=== PATIENT | female | born 1950 | race Caucasian/White ===

== ENCOUNTER → 2020-03-12 08:58 | Outpatient (BNVA) | payer MEDICARE, MEDICAID, SELFPAY | PROVIDERS: PCP Family Medicine; Referring Provider Family Medicine; Visit Provider Nurse Practitioner Family | DX: G47.61 Periodic limb movement disorder (principal); Z88.0 Allergy status to penicillin | CPT/HCPCS: 99212 ==

== ENCOUNTER 2020-03-15 22:47 | Inpatient (IN) | payer MEDICARE, OTHER, SELFPAY ==
[2020-03-15 23:05] VITALS: BP 118/50; BP 118/64; PULSE 67; PULSE 73; RESP 18; TEMP 36.7; O2SAT 100; BMI 21.0
[2020-03-15] MEDS: 0.9 % Sodium Chloride 1,000 ML 999 ML IVCONT (23:25)
[2020-03-15 23:37] LABS: MANUAL DIFF FLAG NO
[2020-03-15 23:38] LABS: Basophils Percent Auto 0.2 % (0-2); Hematocrit 31.7 % (37-47); Hemoglobin 10.7 g/dl (12.0-16.0); Imm Gran Abs Auto 0.05 X10*3/uL (0.00-0.03); Imm Gran Pct Auto 0.6 % (0.0-0.4); Lymphocytes Percent Auto 11.6 % (20-40); Mean Corpuscular HGB Conc 33.8 g/dl (31.0-35.0); Mean Corpuscular Hemoglobin 31.8 pg (27.0-33.0); Mean Corpuscular Volume 94.1 fL (80-98); Mean Platelet Volume 9.2 fL (9.4-12.3); Monocytes Absolute Auto 0.5 X10*3/uL (0.1-1.2); Monocytes Percent Auto 5.3 % (2-11); Neutrophils Absolute Auto 7.2 X10*3/uL (2.0-8.3); Neutrophils Percent Auto 82.3 % (45-73); Platelet Count 308 X10*3/uL (160-400); Red Blood Count 3.37 X10*6/uL (4.20-5.50); Red Cell Distribution Width 13.6 % (11.0-16.0); White Blood Count 8.7 X10*3/uL (4.8-10.8)
--- NOTE | 2020-03-15 23:40 | PC.NURSE ---
PT COMING IN FROM EMS FOR COMPLAINTS OF LOWER ABDOMINAL PAIN AND NAUSEA WITH VOMITTING. PT ARRIVES WITH LINE ESTABLISHED FLUIDS RUNNING WITH IV ZOFRAN. PT LABS SENT AT THIS TIME,. PT VOMITTED FOOD SUSBTANCE WHEN IN THIS RNS CARE. PT VITALS WNL.
[2020-03-16] VITALS (7 sets, daily range): BP systolic 102–139; BP diastolic 49–64; PULSE 70–86; RESP 17–20; TEMP 36.3–37.2; O2SAT 94–100
[2020-03-16 00:04] LABS: Alanine Aminotransferase 17 U/L (0-31); Albumin Level 3.9 g/dL (3.5-5.0); Alkaline Phosphatase 97 U/L (39-117); Anion Gap 15 (12-20); Aspartate Amino Transferase 19 U/L (5-31); Bilirubin Total 0.7 mg/dL (0.0-1.0); Blood Urea Nitrogen 14 mg/dL (9-16); Calcium 8.1 mg/dL (8.4-10.2); Carbon Dioxide 24 mmol/L (22-29); Chloride 104 mmol/L (96-108); Creatinine Clr Calc Pharmacy 48.6; Estimated Glomerular Filt Rate > 60; Glucose Random 118 mg/dL (60-115); Lipase 11 U/L (8-78); Potassium 3.9 mmol/l (3.3-5.1); Sodium 139 mmol/L (135-145); Total Protein 6.5 g/dL (6.5-8.0)
--- NOTE | 2020-03-16 00:49 | CT_ITS ---
EXAMINATION: CT ABDOMEN AND PELVIS WITH CONTRAST CLINICAL INFORMATION: Abdominal pain. COMPARISON: 07/04/2019. TECHNIQUE: Contiguous axial thin section helical images of the abdomen and pelvis were performed following the administration of 85 mL of intravenous Omnipaque 350. The data set was reformatted in the coronal and sagittal planes and reviewed on an independent workstation. DLP: 378 mGy-cm. FINDINGS: The visualized lung bases are clear. The visualized portions of the heart are unremarkable.) . The liver is of normal size and attenuation without focal lesions nor intrahepatic biliary ductal dilation. A normal gallbladder is identified. There is no wall thickening or discernible pericholecystic fluid. The spleen, pancreas, adrenal glands are unremarkable. Both kidneys are of normal size and attenuation without hydronephrosis or nephrolithiasis. Following the administration of IV contrast, prompt symmetric nephrograms are displayed. There is no abdominal free fluid. There is neither mesenteric nor retroperitoneal lymphadenopathy. Evaluation of the sigmoid colon is limited as it is underdistended. There is the appearance of equivocal wall thickening with a few scattered diverticula. There is mild adjacent fat stranding. Otherwise, unremarkable unopacified loops of small and large bowel are identified. There is no pelvic free fluid. The urinary bladder is unremarkable. There is neither pelvic nor inguinal lymphadenopathy. Bone windows: Neither sclerotic nor lytic bone lesions are identified. CT/CT abdomen pelvis w con IMPRESSION: Mild fat stranding noted about decompressed loops of sigmoid colon with a few scattered diverticula. The appearance is suggestive of mild manifestations of colitis. Automated exposure control (Care Dose) Adjustment of the mA and/or kv according to patient size (this includes techniques or standardized protocols for targeted exams where dose is matched to indication / reason for exam; i.e. extremities or head).
--- NOTE | 2020-03-16 00:54 | ED.ABDPAIN ---
HPI - Abdominal Pain General Chief Complaint: Abdominal Pain Stated Complaint: weakness vomiting Time Seen by Provider: 03/16/20 00:08 History of Present Illness HPI narrative: Patient is a 69-year-old female presents today with having abdominal pain positive nausea, vomiting. Vomiting consisted mostly of food. Positive diarrhea. Patient claimed was black. Related Data Home Medications Medication Instructions Recorded Confirmed atorvastatin 40 mg tablet 40 mg PO BEDTIME 03/12/20 03/12/20 calcium carbonate 400 mg chewable 400 mg PO DAILY 03/12/20 03/16/20 tablet escitalopram oxalate 20 mg tablet 20 mg PO DAILY 03/12/20 03/12/20 hydrochlorothiazide 12.5 mg capsule 12.5 mg PO QAM 03/12/20 03/12/20 levothyroxine 75 mcg tablet 75 mcg PO DAILY 03/12/20 03/12/20 melatonin 3 mg capsule 3 mg PO BEDTIME PRN 03/12/20 03/16/20 metoclopramide HCl 5 mg tablet 5 mg PO .1-2 x's per day prn tab 03/12/20 03/16/20 oxybutynin chloride 10 mg 10 mg PO DAILY 03/12/20 03/16/20 tablet,extended release 24 hr pantoprazole 40 mg tablet,delayed 40 mg PO BID tab 03/12/20 03/12/20 release polyethylene glycol 3350 17 17 g PO DAILY 03/12/20 03/12/20 gram/dose oral powder bupropion HCl 150 mg PO BID 03/16/20 03/16/20 pantoprazole 40 mg PO DAILY 03/16/20 03/16/20 Allergies Allergy/AdvReac Type Severity Reaction Status Date / Time penicillin V Allergy Severe SWELLING,RA Verified 03/15/20 23:04 Penicillins [PENICILLINS] Allergy Severe SWELLING,RA Verified 03/15/20 23:04 Physical Exam Vital Signs: Vital Signs: Last Vital Signs Temp 97.3 F 03/16/20 01:20 Pulse 82 03/16/20 01:20 Resp 18 03/16/20 01:20 BP 139/64 03/16/20 01:20 Pulse Ox 100 03/16/20 01:20 Body Mass Index 21.0 MDM - Abdominal Pain MDM Narrative Medical decision making narrative: Patient has nausea, vomiting. Patient's hemoglobin is baseline. Rectal exam showed just mucus. It was heme-negative. Patient's heart rate is normal white count is normal. Does not meet SIRS criteria. No evidence for sepsis. Patient's signs and symptoms suggestive of colitis. CT scan of the abdomen consistent with colitis. No obstruction no abscess no perforation. IV fluid and Zofran was given. Patient unable to tolerate p.o. still. Patient to be admitted for further evaluation. Currently in stable condition. Lab Data Result diagrams: 03/15/20 23:29 03/15/20 23:29 Labs: Lab Results 03/15/20 03/15/20 03/15/20 Range/Units 23:29 23:29 23:29 WBC 8.7 (4.8-10.8) X10*3/uL RBC 3.37 L (4.20-5.50) X10*6/uL Hgb 10.7 L (12.0-16.0) g/dl Hct 31.7 L (37-47) % MCV 94.1 (80-98) fL MCH 31.8 (27.0-33.0) pg MCHC 33.8 (31.0-35.0) g/dl RDW 13.6 (11.0-16.0) % Plt Count 308 (160-400) X10*3/uL MPV 9.2 L (9.4-12.3) fL Immature Gran % (Auto) 0.6 H (0.0-0.4) % Neut % (Auto) 82.3 H (45-73) % Lymph % (Auto) 11.6 L (20-40) % [place] % (Auto) 5.3 (2-11) % Eos % (Auto) 0.0 (0-4) % Baso % (Auto) 0.2 (0-2) % Lymph # (Auto) 1.0 L (1.2-4.9) X10*3/uL [place] # (Auto) 0.5 (0.1-1.2) X10*3/uL Eos # (Auto) 0.0 (0.0-0.4) X10*3/uL Baso # (Auto) 0.0 (0.0-0.2) X10*3/uL Abs Immat Gran (auto) 0.05 H (0.00-0.03) X10*3/uL Absolute Neuts (auto) 7.2 (2.0-8.3) X10*3/uL Absolute Nucleated RBC 0.000 (0.0-0.012) X10*3/uL Nucleated RBC % (auto) 0.0 (0.0-0.2) /100WBC Hold Blue Top SEE NOTE Sodium 139 (135-145) mmol/L Potassium 3.9 (3.3-5.1) mmol/l Chloride 104 (96-108) mmol/L Carbon Dioxide 24 (22-29) mmol/L Anion Gap 15 (12-20) BUN 14 (9-16) mg/dL Creatinine 0.89 (0.5-1.4) mg/dL Estim Creat Clear Calc 48.6 Estimated GFR > 60 Random Glucose 118 H (60-115) mg/dL Calcium 8.1 L (8.4-10.2) mg/dL Total Bilirubin 0.7 (0.0-1.0) mg/dL AST 19 (5-31) U/L ALT 17 (0-31) U/L Alkaline Phosphatase 97 (39-117) U/L Total Protein 6.5 (6.5-8.0) g/dL Albumin 3.9 (3.5-5.0) g/dL Lipase 11 (8-78) U/L Stool Occult Blood (NEG) 03/16/20 Range/Units 01:50 WBC (4.8-10.8) X10*3/uL RBC (4.20-5.50) X10*6/uL Hgb (12.0-16.0) g/dl Hct (37-47) % MCV (80-98) fL MCH (27.0-33.0) pg MCHC (31.0-35.0) g/dl RDW (11.0-16.0) % Plt Count (160-400) X10*3/uL MPV (9.4-12.3) fL Immature Gran % (Auto) (0.0-0.4) % Neut % (Auto) (45-73) % Lymph % (Auto) (20-40) % [place] % (Auto) (2-11) % Eos % (Auto) (0-4) % Baso % (Auto) (0-2) % Lymph # (Auto) (1.2-4.9) X10*3/uL [place] # (Auto) (0.1-1.2) X10*3/uL Eos # (Auto) (0.0-0.4) X10*3/uL Baso # (Auto) (0.0-0.2) X10*3/uL Abs Immat Gran (auto) (0.00-0.03) X10*3/uL Absolute Neuts (auto) (2.0-8.3) X10*3/uL Absolute Nucleated RBC (0.0-0.012) X10*3/uL Nucleated RBC % (auto) (0.0-0.2) /100WBC Hold Blue Top Sodium (135-145) mmol/L Potassium (3.3-5.1) mmol/l Chloride (96-108) mmol/L Carbon Dioxide (22-29) mmol/L Anion Gap (12-20) BUN (9-16) mg/dL Creatinine (0.5-1.4) mg/dL Estim Creat Clear Calc Estimated GFR Random Glucose (60-115) mg/dL Calcium (8.4-10.2) mg/dL Total Bilirubin (0.0-1.0) mg/dL AST (5-31) U/L ALT (0-31) U/L Alkaline Phosphatase (39-117) U/L Total Protein (6.5-8.0) g/dL Albumin (3.5-5.0) g/dL Lipase (8-78) U/L Stool Occult Blood NEG (NEG) Discharge Plan Discharge Clinical Impression: Colitis Prescriptions: No Action bupropion HCl 150 mg tablet sustained-release 12 hr 150 mg PO BID RF: 0 pantoprazole 40 mg tablet,delayed release (DR/EC) 40 mg PO DAILY RF: 0 pantoprazole 40 mg tablet,delayed release (DR/EC) 40 mg PO BID RF: 0 escitalopram oxalate 20 mg tablet 20 mg PO DAILY RF: 0 atorvastatin 40 mg tablet 40 mg PO BEDTIME RF: 0 melatonin 3 mg capsule 3 mg PO BEDTIME PRN (Reason: Sleep) RF: 0 levothyroxine 75 mcg tablet 75 mcg PO DAILY RF: 0 hydrochlorothiazide 12.5 mg capsule 12.5 mg PO QAM RF: 0 calcium carbonate 400 mg tablet,chewable 400 mg PO DAILY RF: 0 oxybutynin chloride 10 mg tablet extended release 24hr 10 mg PO DAILY RF: 0 polyethylene glycol 3350 [Miralax] 17 gram/dose powder 17 g PO DAILY RF: 0 metoclopramide HCl [Reglan] 5 mg tablet 5 mg PO .1-2 x's per day prn RF: 0 PMFSH Past Medical History Medical History (Updated 03/16/20 @ 02:31 by Latosha Jeffrey MD) Anxiety Depression Social History Social History Advance Directives: No Advance Directives Information Provided: No
[2020-03-16] MEDS: iohexoL 350 MG/ML 100 ML INFUS..BTL 85 ML IV (01:11)
--- NOTE | 2020-03-16 02:00 | PC.NURSE ---
po challenge in progress. patient does not want to eat
[2020-03-16 02:05] LABS: OBS Int Ctl Valid YES; OBS1 NEG (NEG)
[2020-03-16] MEDS: 0.9 % Sodium Chloride 1,000 ML 999 ML IVCONT (03:35)
--- NOTE | 2020-03-16 03:37 | PC.NURSE ---
pt ambulated to bathroom with 1 assist, very weak and dizzy. still unable to tolerate po. additional liter hung
[2020-03-16 04:02] LABS: SARS COV2 PCR INHOUSE NEGATIVE (Negative)
--- NOTE | 2020-03-16 06:55 | PC.NURSE ---
received report from wilian Valentino pt is currently asleep, respirations even and unlabored. pt awaiting admission to the hospital
--- NOTE | 2020-03-16 08:35 | PC.NURSE ---
pt assisted to the bthroom, required a wheelchair due to feeling week, still having some nausea and lower abd pain 11/16 at this time, vs stable
--- NOTE | 2020-03-16 10:18 | PC.NURSE ---
REPORT GIVEN TO CAROLANN LORD ON MED/SURG
[2020-03-16] MEDS: Dextrose 5 % and 0.9 % NaCl 1,000 ML 75 ML IVCONT (11:18)
[2020-03-16] MEDS: ondansetron HCL 4 MG/2 ML VIAL IVPUSH ×2 (11:18→21:50)
[2020-03-16] MEDS: Enoxaparin Sodium 40 MG/0.4 ML SYRINGE SUBCUT (13:23)
--- NOTE | 2020-03-16 13:58 | PM.IMHP ---
History of Present Illness Date of Service: 03/16/20 Chief Complaint: Nausea, abdominal pain A 69 years old female with PMH of HTN, hypothyroidism, depression who presented to the hospital complaining of abdominal pain and nausea for the last 3 days. The patient reports feeling well during the week but started to feel abdominal pain around the umbilicus on which got worse on Wednesday with associated mild chills but no fever. She noted over the last 3 days that she is more nauseated and had vomited on couple of episodes. She was not able to tolerate a lot of diet. She denies any chest pain, shortness of breath, cough, urinary symptoms. A CT scan of the abdomen was consistent with diverticulitis Admit for further evaluation treatment. Review of Systems Review of Systems: No fever, chills or weakness No chest pain, palpitation No shortness of breath or coughing Of reported abdominal pain, episodes of nausea or vomiting No urinary symptoms No any rash or wounds PMFSH Medical History Anxiety Depression Restless leg syndrome Social History Household Members: Significant Other Housing: Apartment Do you presently have visiting nurse or other home services: No Alcohol intake: never Smoking Status: Former smoker Tobacco Type: Cigarette Smoked in Last 30 Days: No Smoking Quit Date: 40 years ago Patient Interested in Nicotine Replacement: No Patient Given Instructions on How to Stop Smoking: No Second Hand Smoke Exposure: No Use of substances other than those prescribed or required for medical reasons: No Any prior treatment program specific to substance use: No Have you been hit, kicked, punched, or otherwise hurt by someone within the past year? If so, by whom?: No Do you feel safe in your current relationship?: No Is there a partner from a previous relationship who is making you feel unsafe now?: No Are you made to feel afraid or neglected: No Advance Directives: No Advance Directives Information Provided: No Advance Directives on File: No Do you have thoughts of harming others: None Do you have a plan to hurt others: No Plan Recently lost weight without trying: No Meds Allergies Allergy/AdvReac Type Severity Reaction Status Date / Time penicillin V Allergy Severe SWELLING,RA Verified 03/15/20 23:04 Penicillins [PENICILLINS] Allergy Severe SWELLING,RA Verified 03/15/20 23:04 Home Medications Medication Instructions Recorded Confirmed Type atorvastatin 40 mg tablet 40 mg PO BEDTIME 03/12/20 03/16/20 History calcium carbonate 400 mg chewable 400 mg PO DAILY 03/12/20 03/16/20 History tablet escitalopram oxalate 20 mg tablet 20 mg PO DAILY 03/12/20 03/16/20 History hydrochlorothiazide 12.5 mg capsule 12.5 mg PO QAM 03/12/20 03/16/20 History levothyroxine 75 mcg tablet 75 mcg PO DAILY 03/12/20 03/16/20 History melatonin 3 mg capsule 3 mg PO BEDTIME PRN 03/12/20 03/16/20 History metoclopramide HCl 5 mg tablet 5 mg PO .1-2 x's per day prn tab 03/12/20 03/16/20 History oxybutynin chloride 10 mg 10 mg PO DAILY 03/12/20 03/16/20 History tablet,extended release 24 hr bupropion HCl 150 mg PO DAILY 03/16/20 03/16/20 History pantoprazole 40 mg PO DAILY 03/16/20 03/16/20 History Physical Exam Vital Signs and Narrative: Vital Signs: Last Vital Signs Temp 98.9 F 03/16/20 10:31 Pulse 71 03/16/20 10:31 Resp 18 03/16/20 10:31 BP 122/49 L 03/16/20 10:31 Pulse Ox 100 03/16/20 10:31 Body Mass Index 21.0 Constitutional : Alert, oriented, not in distress Neck : Normal inspection, Supple Cardiovascular : RRR, S1 S2, no lower extremity edema Respiratory : Good bilateral air entry, no crackles, wheezes or rhonchi Gastrointestinal: soft, lax, Normal bowel sounds, mild tenderness over the lower part of the stoma, no surgical signs, no rebound. Skin : Warm/Dry, No rash Neurological : Alert & oriented x3, No focal deficit Results Labs CBC and Chem 7: 03/15/20 23:29 03/15/20 23:29 Labs: Laboratory Results - last 24 hr 03/15/20 03/15/20 03/15/20 23:29 23:29 23:29 MCV 94.1 MCH 31.8 MCHC 33.8 RDW 13.6 Plt Count 308 MPV 9.2 L Immature Gran % (Auto) 0.6 H Neut % (Auto) 82.3 H Lymph % (Auto) 11.6 L [place] % (Auto) 5.3 Eos % (Auto) 0.0 Baso % (Auto) 0.2 Lymph # (Auto) 1.0 L [place] # (Auto) 0.5 Eos # (Auto) 0.0 Baso # (Auto) 0.0 Abs Immat Gran (auto) 0.05 H Absolute Neuts (auto) 7.2 Absolute Nucleated RBC 0.000 Nucleated RBC % (auto) 0.0 Hold Blue Top SEE NOTE Anion Gap 15 Estim Creat Clear Calc 48.6 Estimated GFR > 60 Random Glucose 118 H Calcium 8.1 L Total Bilirubin 0.7 AST 19 ALT 17 Alkaline Phosphatase 97 Total Protein 6.5 Albumin 3.9 Lipase 11 Stool Occult Blood Coronavirus (PCR) 03/16/20 03/16/20 01:50 02:26 MCV MCH MCHC RDW Plt Count MPV Immature Gran % (Auto) Neut % (Auto) Lymph % (Auto) [place] % (Auto) Eos % (Auto) Baso % (Auto) Lymph # (Auto) [place] # (Auto) Eos # (Auto) Baso # (Auto) Abs Immat Gran (auto) Absolute Neuts (auto) Absolute Nucleated RBC Nucleated RBC % (auto) Hold Blue Top Anion Gap Estim Creat Clear Calc Estimated GFR Random Glucose Calcium Total Bilirubin AST ALT Alkaline Phosphatase Total Protein Albumin Lipase Stool Occult Blood NEG Coronavirus (PCR) NEGATIVE Imaging Radiologist's Impressions: Impressions Abdomen/Pelvis CT 03/16/20 00:49 IMPRESSION: Mild fat stranding noted about decompressed loops of sigmoid colon with a few scattered diverticula. The appearance is suggestive of mild manifestations of colitis. Automated exposure control (Care Dose) Adjustment of the mA and/or kv according to patient size (this includes techniques or standardized protocols for targeted exams where dose is matched to indication / reason for exam; i.e. extremities or head). Assessment and Plan (1) Colitis: Status: Acute (2) Fatigue: Status: Acute (3) Depression: Status: Acute (4) Hypothyroidism: Status: Acute (5) Intractable nausea and vomiting: Status: Acute A 69 years old female with PMH of HTN, hypothyroidism, depression who presented to the hospital complaining of abdominal pain and nausea for the last 3 days. Acute colitis Intractable nausea and vomiting Not septic CT scan showing colitis IV fluid started on Flagyl and ceftriaxone Advanced diet as tolerated Zofran for nausea GERD Continue omeprazole Hypothyroidism Continue levothyroxine Hypertension continue hydrochlorothiazide DVT PPX Lovenox
[2020-03-16] MEDS: metroNIDAZOLE/NS 500 MG/100 ML PIGGYBACK 100 MG IV (17:08)
[2020-03-16] MEDS: 0.9 % Sodium Chloride Flush 3 ML SYRINGE IVFLUSH (17:16)
[2020-03-16] MEDS: cefTRIAXone sodium 1 GM in 0.9 % Sodium Chloride 50 ML IV (18:34)
[2020-03-16] MEDS: Atorvastatin Calcium 40 MG TABLET PO (21:42)
[2020-03-17] MEDS: 0.9 % Sodium Chloride Flush 3 ML SYRINGE IVFLUSH ×2 (00:22→08:08)
[2020-03-17] MEDS: metroNIDAZOLE/NS 500 MG/100 ML PIGGYBACK 100 MG IV ×3 (01:20→18:38)
[2020-03-17] MEDS: Dextrose 5 % and 0.9 % NaCl 1,000 ML 75 ML IVCONT ×2 (01:27→13:11)
[2020-03-17] MEDS: Levothyroxine Sodium 75 MCG TABLET PO (05:45)
[2020-03-17] MEDS: Omeprazole 40 MG CAPSULE.DR PO (05:45)
[2020-03-17 07:38] LABS: MANUAL DIFF FLAG NO
[2020-03-17 07:49] LABS: Basophils Percent Auto 0.1 % (0-2); Eosinophils Percent Auto 0.1 % (0-4); Hematocrit 29.5 % (37-47); Hemoglobin 9.8 g/dl (12.0-16.0); Imm Gran Abs Auto 0.03 X10*3/uL (0.00-0.03); Imm Gran Pct Auto 0.4 % (0.0-0.4); Lymphocytes Absolute Auto 1.6 X10*3/uL (1.2-4.9); Lymphocytes Percent Auto 20.8 % (20-40); Mean Corpuscular HGB Conc 33.2 g/dl (31.0-35.0); Mean Corpuscular Hemoglobin 31.8 pg (27.0-33.0); Mean Corpuscular Volume 95.8 fL (80-98); Mean Platelet Volume 9.4 fL (9.4-12.3); Monocytes Absolute Auto 0.7 X10*3/uL (0.1-1.2); Monocytes Percent Auto 8.9 % (2-11); Neutrophils Absolute Auto 5.5 X10*3/uL (2.0-8.3); Neutrophils Percent Auto 69.7 % (45-73); Platelet Count 294 X10*3/uL (160-400); Red Blood Count 3.08 X10*6/uL (4.20-5.50); Red Cell Distribution Width 13.7 % (11.0-16.0); White Blood Count 7.9 X10*3/uL (4.8-10.8)
[2020-03-17 07:54] VITALS: BP 119/71; PULSE 60; RESP 18; TEMP 36.1; O2SAT 99
[2020-03-17] MEDS: hydroCHLOROthiazide 12.5 MG TABLET PO (08:06)
[2020-03-17] MEDS: Escitalopram Oxalate 20 MG TABLET PO (08:06)
[2020-03-17 08:24] LABS: Anion Gap 9 (12-20); Blood Urea Nitrogen 9 mg/dL (9-16); Carbon Dioxide 26 mmol/L (22-29); Chloride 108 mmol/L (96-108); Creatinine Clr Calc Pharmacy 52.1; Estimated Glomerular Filt Rate > 60; Glucose Random 107 mg/dL (60-115); Potassium 3.3 mmol/l (3.3-5.1); Sodium 140 mmol/L (135-145)
[2020-03-17] MEDS: ondansetron HCL 4 MG/2 ML VIAL IVPUSH ×2 (09:22→18:38)
[2020-03-17 11:10] VITALS: BP 138/56; PULSE 69; RESP 17; TEMP 36.8; O2SAT 99
--- NOTE | 2020-03-17 12:07 | HO.PM.IMPN ---
Subjective Subjective Date of Service: 03/17/20 Interval History: the patient was seen and evaluated this morning Laying in bed, feels comfortable Denies any fever, chills or shortness of breath Abdominal pain better controlled No reported other overnight events. Review of Systems Review of Systems: Yes all other systems are reviewed and are negative Physical Exam Vital Signs: Vital Signs: Last Vital Signs Temp 98.2 F 03/17/20 11:10 Pulse 69 03/17/20 11:10 Resp 17 03/17/20 11:10 BP 138/56 L 03/17/20 11:10 Pulse Ox 99 03/17/20 11:10 Body Mass Index 21.0 Constitutional : Alert, oriented, not in distress Neck : Normal inspection, Supple Cardiovascular : RRR, S1 S2, no lower extremity edema Respiratory : Good bilateral air entry, no crackles, wheezes or rhonchi Gastrointestinal: soft, lax, Normal bowel sounds, mild tenderness over the lower part of the abdomen, no surgical signs, no rebound. Skin : Warm/Dry, No rash Neurological : Alert & oriented x3, No focal deficit Objective Data Current Medications Generic Name Dose Route Start Last Admin Trade Name Freq PRN Reason Stop Dose Admin Acetaminophen 650 mg 03/16/20 10:39 Acetaminophen 325 Mg Tablet PO Q6H PRN Pain, Mild (Pain Scale 1-3) Al Hydroxide/Mg Hydroxide 30 ml 03/16/20 10:39 Magnesium Hydrox/Alum Hydrox 30 Ml Oral.Susp PO Q4H PRN Heartburn/Nausea Atorvastatin Calcium 40 mg 03/16/20 21:00 03/16/20 21:42 Atorvastatin Calcium 40 Mg Tablet PO 40 mg BEDTIME ERIK Administration Enoxaparin Sodium 40 mg 03/16/20 12:00 03/16/20 13:23 Enoxaparin Sodium 40 Mg/0.4 Ml Syringe SUBCUT 40 mg Q24H ERIK Administration Escitalopram Oxalate 20 mg 03/17/20 09:00 03/17/20 08:06 Escitalopram Oxalate 20 Mg Tablet PO 20 mg DAILY ERIK Administration Hydrochlorothiazide 12.5 mg 03/16/20 10:39 03/17/20 08:06 Hydrochlorothiazide 12.5 Mg Tablet PO 12.5 mg DAILY ERIK Administration Protocol Dextrose/Sodium Chloride 1,000 mls @ 75 mls/hr 03/16/20 10:39 03/17/20 01:27 D5ns IVCONT 75 mls/hr .[id number] ERIK Administration Ceftriaxone Sodium 1 gm/ 50 mls @ 100 mls/hr 03/17/20 18:00 Sodium Chloride IV Q24H ERIK Metronidazole 500 mg in 100 mls @ 100 mls/hr 03/17/20 01:00 03/17/20 09:23 Flagyl IV Infused Q8H ERIK Infusion Levothyroxine Sodium 75 mcg 03/16/20 10:39 03/17/20 05:45 Levothyroxine Sodium 75 Mcg Tablet PO 75 mcg DAILY@0630 ERIK Administration Metoclopramide HCl 5 mg 03/16/20 21:00 Metoclopramide Hcl 5 Mg Tablet PO BID PRN GI Upset Omeprazole 40 mg 03/17/20 06:30 03/17/20 05:45 Omeprazole 40 Mg Capsule.Dr PO 40 mg DAILY@0630 ERIK Administration Ondansetron HCl 4 mg 03/16/20 10:52 03/17/20 09:22 Ondansetron Hcl 4 Mg/2 Ml Vial IVPUSH 4 mg Q8H PRN Administration Nausea and Vomiting Oxybutynin Chloride 10 mg 03/16/20 10:39 03/17/20 08:06 Oxybutynin Chloride Er 5 Mg Tab.Er.24 PO 10 mg DAILY ERIK Administration Pharmacy Consult 1 each 03/16/20 06:56 Consult Rx Perform Med Rec MISCELLANE ONCE PRN Consult order Sodium Chloride 3 ml 03/16/20 16:00 03/17/20 08:08 0.9 % Sodium Chloride Flush 3 Ml Syringe IVFLUSH 3 ml QSHIFT ERIK Administration Labs CBC & Chem 7: 03/17/20 07:12 03/17/20 07:12 Assessment and Plan (1) Colitis: Status: Acute (2) Fatigue: Status: Acute (3) Depression: Status: Acute (4) Hypothyroidism: Status: Acute (5) Intractable nausea and vomiting: Status: Acute Assessment and Plan: A 69 years old female with PMH of HTN, hypothyroidism, depression who presented to the hospital complaining of abdominal pain and nausea for the last 3 days. Acute colitis Intractable nausea and vomiting Improving CT scan showing colitis Continue IV fluid Continue Flagyl and ceftriaxone Advanced diet as tolerated Zofran for nausea GERD Continue omeprazole Hypothyroidism Continue levothyroxine Hypertension continue hydrochlorothiazide DVT PPX Lovenox
[2020-03-17] MEDS: Enoxaparin Sodium 40 MG/0.4 ML SYRINGE SUBCUT (13:02)
--- NOTE | 2020-03-17 13:41 | MHC.CM.PN ---
Pt reports she lives with her s/o, Freddie Barron ([phone]) and is independent with care and mobility. Pt reports she does not use DME and has no home/community services. Pt is unsure if she has a HCP but did not want to complete one today. [facility] delivered current DC plan is home with no services pt will self arrange transport
[2020-03-17 15:21] VITALS: BP 141/61; PULSE 71; RESP 18; TEMP 36.6; O2SAT 98
[2020-03-17 19:01] VITALS: BP 140/66; PULSE 70; RESP 19; TEMP 36.4; O2SAT 98
[2020-03-17] MEDS: cefTRIAXone sodium 1 GM in 0.9 % Sodium Chloride 50 ML IV (19:50)
[2020-03-17] MEDS: Atorvastatin Calcium 40 MG TABLET PO (21:19)
[2020-03-18] MEDS: metroNIDAZOLE/NS 500 MG/100 ML PIGGYBACK 100 MG IV ×3 (01:24→16:50)
[2020-03-18] MEDS: ondansetron HCL 4 MG/2 ML VIAL IVPUSH (02:25)
[2020-03-18] MEDS: Dextrose 5 % and 0.9 % NaCl 1,000 ML 75 ML IVCONT (02:29)
[2020-03-18 04:17] VITALS: BP 107/56; PULSE 68; RESP 19; TEMP 36.5; O2SAT 96
[2020-03-18] MEDS: Omeprazole 40 MG CAPSULE.DR PO (06:21)
[2020-03-18] MEDS: Levothyroxine Sodium 75 MCG TABLET PO (06:22)
[2020-03-18 06:25] LABS: Hemoglobin 8.9 g/dl (12.0-16.0); Mean Corpuscular Hemoglobin 30.9 pg (27.0-33.0); Mean Corpuscular Volume 93.8 fL (80-98); Mean Platelet Volume 9.2 fL (9.4-12.3); Platelet Count 254 X10*3/uL (160-400); Red Blood Count 2.88 X10*6/uL (4.20-5.50); Red Cell Distribution Width 13.1 % (11.0-16.0); White Blood Count 7.5 X10*3/uL (4.8-10.8)
[2020-03-18 06:52] LABS: Anion Gap 7 (12-20); Blood Urea Nitrogen 5 mg/dL (9-16); Calcium 7.6 mg/dL (8.4-10.2); Carbon Dioxide 30 mmol/L (22-29); Chloride 105 mmol/L (96-108); Creatinine Clr Calc Pharmacy 53.4; Estimated Glomerular Filt Rate > 60; Glucose Random 102 mg/dL (60-115); Potassium 2.6 mmol/l (3.3-5.1); Sodium 139 mmol/L (135-145)
[2020-03-18] MEDS: Potassium Chloride ER 20 MEQ TAB.ER.PRT 40 MEQ PO (07:58)
[2020-03-18] MEDS: hydroCHLOROthiazide 12.5 MG TABLET PO (07:58)
[2020-03-18] MEDS: Escitalopram Oxalate 20 MG TABLET PO (07:59)
[2020-03-18 08:09] VITALS: BP 119/55; PULSE 60; RESP 18; TEMP 36.3; O2SAT 99
--- NOTE | 2020-03-18 11:11 | HO.PM.IMPN ---
Subjective Subjective Date of Service: 03/18/20 Interval History: the patient was seen and evaluated this morning Laying in bed, feels comfortable, reported nausea with mealss Denies any fever, chills or shortness of breath Abdominal pain better controlled No reported other overnight events. Physical Exam Vital Signs: Vital Signs: Last Vital Signs Temp 97.4 F 03/18/20 08:09 Pulse 60 03/18/20 08:09 Resp 18 03/18/20 08:09 BP 119/55 L 03/18/20 08:09 Pulse Ox 99 03/18/20 08:09 Body Mass Index 21.0 Constitutional : Alert, oriented, not in distress Neck : Normal inspection, Supple Cardiovascular : RRR, S1 S2, no lower extremity edema Respiratory : Good bilateral air entry, no crackles, wheezes or rhonchi Gastrointestinal: soft, lax, Normal bowel sounds, mild tenderness over the lower part of the abdomen, no surgical signs, no rebound. Skin : Warm/Dry, No rash Neurological : Alert & oriented x3, No focal deficit Objective Data Current Medications Generic Name Dose Route Start Last Admin Trade Name Radamesq PRN Reason Stop Dose Admin Acetaminophen 650 mg 03/16/20 10:39 Acetaminophen 325 Mg Tablet PO Q6H PRN Pain, Mild (Pain Scale 1-3) Al Hydroxide/Mg Hydroxide 30 ml 03/16/20 10:39 Magnesium Hydrox/Alum Hydrox 30 Ml Oral.Susp PO Q4H PRN Heartburn/Nausea Atorvastatin Calcium 40 mg 03/16/20 21:00 03/17/20 21:19 Atorvastatin Calcium 40 Mg Tablet PO 40 mg BEDTIME ERIK Administration Escitalopram Oxalate 20 mg 03/17/20 09:00 03/18/20 07:59 Escitalopram Oxalate 20 Mg Tablet PO 20 mg DAILY ERIK Administration Hydrochlorothiazide 12.5 mg 03/16/20 10:39 03/18/20 07:58 Hydrochlorothiazide 12.5 Mg Tablet PO 12.5 mg DAILY ERIK Administration Protocol Ceftriaxone Sodium 1 gm/ 50 mls @ 100 mls/hr 03/17/20 18:00 03/17/20 20:20 Sodium Chloride IV Infused Q24H ERIK Infusion Metronidazole 500 mg in 100 mls @ 100 mls/hr 03/17/20 01:00 03/18/20 10:18 Flagyl IV 100 mls/hr Q8H ERIK Administration Levothyroxine Sodium 75 mcg 03/16/20 10:39 03/18/20 06:22 Levothyroxine Sodium 75 Mcg Tablet PO 75 mcg DAILY@0630 [facility] Administration Metoclopramide HCl 5 mg 03/16/20 21:00 Metoclopramide Hcl 5 Mg Tablet PO BID PRN GI Upset Metoclopramide HCl 5 mg 03/18/20 11:30 Metoclopramide Hcl 5 Mg Tablet PO TIDAC [facility] Omeprazole 40 mg 03/17/20 06:30 03/18/20 06:21 Omeprazole 40 Mg Capsule. PO 40 mg DAILY@0630 [facility] Administration Ondansetron HCl 4 mg 03/16/20 10:52 03/18/20 02:25 Ondansetron Hcl 4 Mg/2 Ml Vial IVPUSH 4 mg Q8H PRN Administration Nausea and Vomiting Oxybutynin Chloride 10 mg 03/16/20 10:39 03/18/20 07:58 Oxybutynin Chloride Er 5 Mg Tab.Er.24 PO 10 mg DAILY [facility] Administration Pharmacy Consult 1 each 03/16/20 06:56 Consult Rx Perform Med Rec MISCELLANE ONCE PRN Consult order Sodium Chloride 3 ml 03/16/20 16:00 03/18/20 07:59 0.9 % Sodium Chloride Flush 3 Ml Syringe IVFLUSH Not Given QSHIFT [facility] Labs CBC & Chem 7: 03/18/20 05:58 03/18/20 05:58 Assessment and Plan (1) Colitis: Status: Acute (2) Fatigue: Status: Acute (3) Depression: Status: Acute (4) Hypothyroidism: Status: Acute (5) Intractable nausea and vomiting: Status: Acute Assessment and Plan: A 69 years old female with PMH of HTN, hypothyroidism, depression who presented to the hospital complaining of abdominal pain and nausea for the last 3 days. Acute colitis Intractable nausea and vomiting Improving CT scan showing colitis DC IV fluid To use Reglan with meals Continue Flagyl and ceftriaxone Advanced diet to full liquids Zofran for nausea PRN GERD Continue omeprazole Hypothyroidism Continue levothyroxine Hypertension continue hydrochlorothiazide DVT PPX Lovenox
[2020-03-18 11:37] VITALS: BP 124/57; PULSE 64; RESP 18; TEMP 36.4; O2SAT 99
--- NOTE | 2020-03-18 11:44 | MHC.CM.PN ---
nurse patient care manager note electronic medical record reviewed along with caSE DISCUSSED WITH STAFF NURSE , MET WITH PATIENT SHE REPORTED FEELING BETTER THAN THE WEEKEND , STILL SOME NAUSEA WITH MEALS PER CT OF ABDOMEN SHOWED COLITIS PLAN OF CARE PER DOCUMENTATION STOP IV FLUIDS, USE REGLAN WITH MEALS CONTINUE TWO IV ABX (FLAGYL CEFTRIAXONE) ADVANCE TO FULL LIQUIDS AND PRN ZOFRAN , DISCHARGE PLAN ANTICIPATE DISCHrged home qith no servcies family to transport at time of discharge
[2020-03-18] MEDS: Metoclopramide HCl 5 MG TABLET PO ×2 (11:56→16:50)
[2020-03-18 15:42] VITALS: BP 107/45; PULSE 66; RESP 16; TEMP 36.6; O2SAT 97
[2020-03-18] MEDS: 0.9 % Sodium Chloride Flush 3 ML SYRINGE IVFLUSH (16:52)
[2020-03-18] MEDS: cefTRIAXone sodium 1 GM in 0.9 % Sodium Chloride 50 ML IV (18:37)
[2020-03-18] MEDS: Atorvastatin Calcium 40 MG TABLET PO (22:37)
[2020-03-19] VITALS: BP 136/66; PULSE 68; RESP 20; TEMP 36.3; O2SAT 96
[2020-03-19] MEDS: 0.9 % Sodium Chloride Flush 3 ML SYRINGE IVFLUSH ×2 (01:01→07:26)
[2020-03-19] MEDS: metroNIDAZOLE/NS 500 MG/100 ML PIGGYBACK 100 MG IV ×2 (01:01→07:26)
[2020-03-19] MEDS: Levothyroxine Sodium 75 MCG TABLET PO (05:44)
[2020-03-19] MEDS: Omeprazole 40 MG CAPSULE.DR PO (05:44)
[2020-03-19 07:11] VITALS: BP 117/52; PULSE 62; RESP 18; TEMP 36.6; O2SAT 98
[2020-03-19 07:11] LABS: Hematocrit 27.7 % (37-47); Hemoglobin 9.2 g/dl (12.0-16.0); Mean Corpuscular HGB Conc 33.2 g/dl (31.0-35.0); Mean Corpuscular Hemoglobin 31.1 pg (27.0-33.0); Mean Corpuscular Volume 93.6 fL (80-98); Mean Platelet Volume 9.8 fL (9.4-12.3); Platelet Count 270 X10*3/uL (160-400); Red Blood Count 2.96 X10*6/uL (4.20-5.50); Red Cell Distribution Width 13.1 % (11.0-16.0); White Blood Count 7.6 X10*3/uL (4.8-10.8)
[2020-03-19] MEDS: hydroCHLOROthiazide 12.5 MG TABLET PO (07:26)
[2020-03-19] MEDS: Escitalopram Oxalate 20 MG TABLET PO (07:26)
[2020-03-19] MEDS: Metoclopramide HCl 5 MG TABLET PO ×2 (07:26→11:36)
[2020-03-19 07:36] LABS: Anion Gap 8 (12-20); Blood Urea Nitrogen 9 mg/dL (9-16); Calcium 7.8 mg/dL (8.4-10.2); Carbon Dioxide 28 mmol/L (22-29); Chloride 106 mmol/L (96-108); Creatinine Clr Calc Pharmacy 55.5; Estimated Glomerular Filt Rate > 60; Glucose Random 72 mg/dL (60-115); Potassium 3.3 mmol/l (3.3-5.1); Sodium 139 mmol/L (135-145)
[2020-03-19 08:00] VITALS: BP 117/52; PULSE 62; RESP 62; TEMP 36.6; O2SAT 98
[2020-03-19 08:56] VITALS: BP 117/52; PULSE 62; O2SAT 98
[2020-03-19 11:08] VITALS: BP 110/50; PULSE 76; RESP 17; TEMP 36.3; O2SAT 96
--- NOTE | 2020-03-19 12:24 | MHC.CM.PN ---
nurse healthcare administrative assistant note electronic medical record reviewed along with case discussed with staff nurse and n patient care rounds , patient will be discharge home today discharge plan home no srvices pcp patient to call for post discharge follwo up appointment transportation partner
--- NOTE | 2020-03-19 13:20 | PM.DS ---
DS: Providers Provider Date of admission: 03/16/20 09:49 Primary care physician: Randolph Thomas MD DS: Diagnosis Discharge Diagnosis (1) Colitis: Status: Acute (2) Fatigue: Status: Acute (3) Depression: Status: Acute (4) Hypothyroidism: Status: Acute (5) Intractable nausea and vomiting: Status: Acute DS: Summary Hospital Course Hospital Course: Admission note HPI A 69 years old female with PMH of HTN, hypothyroidism, depression who presented to the hospital complaining of abdominal pain and nausea for the last 3 days. The patient reports feeling well during the week but started to feel abdominal pain around the umbilicus on which got worse on Wednesday with associated mild chills but no fever. She noted over the last 3 days that she is more nauseated and had vomited on couple of episodes. She was not able to tolerate a lot of diet. She denies any chest pain, shortness of breath, cough, urinary symptoms. A CT scan of the abdomen was consistent with diverticulitis Admit for further evaluation treatment. Hospital course The patient was admitted for treatment acute colitis shown a CT scan of the abdomen and pelvis associated with intractable nausea and vomiting. She was started on IV fluid, antibiotics of Flagyl and ceftriaxone. Her blood cultures remain negative during the hospital stay. Reglan was used with the meals for nausea with good response. Her diet was advanced during the hospital stay. She was able to ambulate with the nurses. To be discharged home to continue Flagyl and Ceftin. Next [place] to follow-up with PCP as outpatient To advanced diet as tolerated Time Spent with Patient Time attestation: Total time spent providing and/or coordinating discharge services: Physical Exam Vital Signs: Vital Signs: Last Vital Signs Temp 97.3 F 03/19/20 11:08 Pulse 76 03/19/20 11:08 Resp 17 03/19/20 11:08 BP 110/50 L 03/19/20 11:08 Pulse Ox 96 03/19/20 11:08 Body Mass Index 21.0 Constitutional : Alert, oriented, not in distress Neck : Normal inspection, Supple Cardiovascular : RRR, S1 S2, no lower extremity edema Respiratory : Good bilateral air entry, no crackles, wheezes or rhonchi Gastrointestinal: soft, lax, Normal bowel sounds, no tenderness, no surgical signs, no rebound. Skin : Warm/Dry, No rash Neurological : Alert & oriented x3, No focal deficit DS: Data Data Completed and Pending Labs on day of discharge: 03/15/20 23:29 Complete Blood Count Auto Diff Stat Comprehensive Met. Panel Stat Hold Lt Blue - Possible Coag Stat Lipase Stat 03/15/20 23:30 0.9 % Sodium Chloride [Ns] 1,000 ml IVCONT 999 mls/hr 03/16/20 00:49 CT abdomen pelvis w con Stat 03/16/20 01:10 iohexoL 350 MG/ML [Omnipaque 350 MG/ML] 85 ml IV ONCE ONE 03/16/20 01:50 OBSX1 Stat 03/16/20 02:26 SARS COV2 PCR INHOUSE Stat 03/16/20 02:34 Promethazine HCL [Phenergan] 12.5 mg 0.9 % Sodium Chloride [Ns] 50 ml IV ONCE 03/16/20 02:45 0.9 % Sodium Chloride [Ns] 1,000 ml IVCONT 999 mls/hr 03/16/20 03:13 Promethazine HCL [Phenergan] 25 mg IV .STK-MED ONE 03/16/20 06:22 ED Diet NOW 03/16/20 09:44 Transfer Order Routine 03/16/20 10:39 Dextrose 5 % and 0.9 % NaCl [D5ns] 1,000 ml IVCONT 75 mls/hr 03/16/20 11:07 ondansetron HCL [Zofran] 4 mg .ROUTE .STK-MED ONE 03/16/20 12:00 Enoxaparin Sodium [Lovenox] 40 mg SUBCUT Q24H 03/16/20 14:15 cefTRIAXone sodium [Rocephin] 1 gm 0.9 % Sodium Chloride [Ns] 50 ml IV Q24H 03/16/20 15:00 metroNIDAZOLE/NS [Flagyl] 500 mg in 100 ml IV Q8H 03/16/20 Lunch Clear Liquid Diet 03/16/20 18:28 cefTRIAXone sodium [Rocephin] 1 gm .ROUTE .STK-MED ONE 03/17/20 07:12 Basic Metabolic Panel DAILY@0600 Complete Blood Count Auto Diff DAILY@0600 03/17/20 19:41 cefTRIAXone sodium [Rocephin] 1 gm .ROUTE .STK-MED ONE 03/18/20 05:58 Basic Metabolic Panel DAILY@0600 Complete Blood Count no Diff DAILY@0600 03/18/20 07:42 Potassium Chloride ER [Klor-con] 40 meq PO ONCE ONE 03/18/20 18:27 cefTRIAXone sodium [Rocephin] 1 gm .ROUTE .STK-MED ONE 03/19/20 06:23 Basic Metabolic Panel DAILY@0600 Complete Blood Count no Diff DAILY@0600 Laboratory Last Values WBC 7.6 X10*3/uL (4.8-10.8) 03/19/20 06:23 RBC 2.96 X10*6/uL (4.20-5.50) L 03/19/20 06:23 Hgb 9.2 g/dl (12.0-16.0) L 03/19/20 06:23 Hct 27.7 % (37-47) L 03/19/20 06:23 MCV 93.6 fL (80-98) 03/19/20 06:23 MCH 31.1 pg (27.0-33.0) 03/19/20 06:23 MCHC 33.2 g/dl (31.0-35.0) 03/19/20 06:23 RDW 13.1 % (11.0-16.0) 03/19/20 06:23 Plt Count 270 X10*3/uL (160-400) 03/19/20 06:23 MPV 9.8 fL (9.4-12.3) 03/19/20 06:23 Immature Gran % (Auto) 0.4 % (0.0-0.4) 03/17/20 07:12 Neut % (Auto) 69.7 % (45-73) 03/17/20 07:12 Lymph % (Auto) 20.8 % (20-40) 03/17/20 07:12 [place] % (Auto) 8.9 % (2-11) 03/17/20 07:12 Eos % (Auto) 0.1 % (0-4) 03/17/20 07:12 Baso % (Auto) 0.1 % (0-2) 03/17/20 07:12 Lymph # (Auto) 1.6 X10*3/uL (1.2-4.9) 03/17/20 07:12 [place] # (Auto) 0.7 X10*3/uL (0.1-1.2) 03/17/20 07:12 Eos # (Auto) 0.0 X10*3/uL (0.0-0.4) 03/17/20 07:12 Baso # (Auto) 0.0 X10*3/uL (0.0-0.2) 03/17/20 07:12 Abs Immat Gran (auto) 0.03 X10*3/uL (0.00-0.03) 03/17/20 07:12 Absolute Neuts (auto) 5.5 X10*3/uL (2.0-8.3) 03/17/20 07:12 Absolute Nucleated RBC 0.000 X10*3/uL (0.0-0.012) 03/19/20 06:23 Nucleated RBC % (auto) 0.0 /100WBC (0.0-0.2) 03/19/20 06:23 Hold Blue Top SEE NOTE 03/15/20 23:29 Sodium 139 mmol/L (135-145) 03/19/20 06:23 Potassium 3.3 mmol/l (3.3-5.1) D 03/19/20 06:23 Chloride 106 mmol/L (96-108) 03/19/20 06:23 Carbon Dioxide 28 mmol/L (22-29) 03/19/20 06:23 Anion Gap 8 (12-20) L 03/19/20 06:23 BUN 9 mg/dL (9-16) D 03/19/20 06:23 Creatinine 0.78 mg/dL (0.5-1.4) 03/19/20 06:23 Estim Creat Clear Calc 55.5 03/19/20 06:23 Estimated GFR > 60 03/19/20 06:23 Random Glucose 72 mg/dL (60-115) 03/19/20 06:23 Calcium 7.8 mg/dL (8.4-10.2) L 03/19/20 06:23 Total Bilirubin 0.7 mg/dL (0.0-1.0) 03/15/20 23:29 AST 19 U/L (5-31) 03/15/20 23:29 ALT 17 U/L (0-31) 03/15/20 23:29 Alkaline Phosphatase 97 U/L (39-117) 03/15/20 23:29 Total Protein 6.5 g/dL (6.5-8.0) 03/15/20 23:29 Albumin 3.9 g/dL (3.5-5.0) 03/15/20 23:29 Lipase 11 U/L (8-78) 03/15/20 23:29 Stool Occult Blood NEG (NEG) 03/16/20 01:50 Coronavirus (PCR) NEGATIVE (Negative) 03/16/20 02:26 Discharge Plan Discharge Patient Disposition: Home, Self-Care Referrals: Randolph Thomas MD [Primary Care Provider] - Discharge Medications: New metoclopramide HCl 5 mg Tablet 5 mg PO TIDAC PRN (Reason: nausea and vomiting) Qty: 10 RF: 0 cefuroxime axetil 500 mg tablet 500 mg PO Q12H Qty: 8 RF: 0 metronidazole [Flagyl] 500 mg tablet 500 mg PO Q8H Qty: 12 RF: 0 Continued bupropion HCl 150 mg tablet sustained-release 12 hr 150 mg PO DAILY RF: 0 pantoprazole 40 mg tablet,delayed release (DR/EC) 40 mg PO DAILY RF: 0 escitalopram oxalate 20 mg tablet 20 mg PO DAILY RF: 0 atorvastatin 40 mg tablet 40 mg PO BEDTIME RF: 0 melatonin 3 mg capsule 3 mg PO BEDTIME PRN (Reason: Sleep) RF: 0 levothyroxine 75 mcg tablet 75 mcg PO DAILY RF: 0 hydrochlorothiazide 12.5 mg capsule 12.5 mg PO QAM RF: 0 calcium carbonate 400 mg tablet,chewable 400 mg PO DAILY RF: 0 oxybutynin chloride 10 mg tablet extended release 24hr 10 mg PO DAILY RF: 0 metoclopramide HCl [Reglan] 5 mg tablet 5 mg PO .1-2 x's per day prn RF: 0 Discharge Orders: Discharge Order (Routine); Ordered 03/19/20 Ordered By: Conchita Loving Diet: advance to your usual diet Activity on Discharge: As tolerated Visit Report Forms: Patient Portal Discharge page Care Plan Goals: read below Health Concerns: read below Plan of Treatment: you were admitted to the hospital for evaluation of abdominal pain. Images for your abdomen including CT scan was consistent with colitis. You were treated with IV antibiotics, IV fluids and nausea medication with good response. To continue Flagyl and Ceftin for 4 more days Advance your diet over the next few days, avoid fatty and spicy meals To follow-up with PCP in 1 week
== END 2020-03-19 13:00 | disposition home or self-care (01) | DRG 392 ==
LOC: HO.ED 03-16 07:36 → HO.S3 03-16 09:59
PROVIDERS: Admitting Provider Student in an Organized Health Care Education/Training Program; Emergency Provider Emergency Medicine Emergency Medical Services; PCP Family Medicine; Visit Provider Student in an Organized Health Care Education/Training Program
DX: K52.9 Noninfective gastroenteritis and colitis, unspecified (principal); F41.9 Anxiety disorder, unspecified; F32.9 Major depressive disorder, single episode, unspecified; I10 Essential (primary) hypertension; E87.6 Hypokalemia; K21.9 Gastro-esophageal reflux disease without esophagitis; E03.9 Hypothyroidism, unspecified; Z20.828 Contact with and (suspected) exposure to other viral communicable diseases; Z87.891 Personal history of nicotine dependence; Z88.0 Allergy status to penicillin; Z79.890 Hormone replacement therapy; Z79.899 Other long term (current) drug therapy
CPT/HCPCS: 36415; 74177; 80048; 80053; 82272; 83690; 85025; 85027; 96361; 96374; 97161; 99285; J0696; J1650; J2405; Q9967; U0003

== ENCOUNTER 2020-03-20 20:06 | Inpatient (IN) | payer MEDICARE, MEDICAID, SELFPAY ==
[2020-03-20 20:19] VITALS: BP 148/72; BP 156/66; PULSE 72; PULSE 85; RESP 18; TEMP 36.6; O2SAT 100; O2SAT 99; BMI 24.7
--- NOTE | 2020-03-20 21:58 | CT_ITS ---
EXAMINATION: CT ABDOMEN AND PELVIS WITH CONTRAST CLINICAL INFORMATION: Abdominal pain. COMPARISON: 03/16/2020. TECHNIQUE: Contiguous axial thin section helical images of the abdomen and pelvis were performed following the administration of 85 mL of intravenous Omnipaque 350. The data set was reformatted in the coronal and sagittal planes and reviewed on an independent workstation. DLP: 357 mGy-cm. FINDINGS: The visualized lung bases are clear. The visualized portions of the heart are unremarkable. There is a small hiatal hernia. The liver is of normal size and attenuation without focal lesions nor intrahepatic biliary ductal dilation. A normal gallbladder is identified. There is no wall thickening or discernible pericholecystic fluid. The spleen, pancreas, adrenal glands are unremarkable. Both kidneys are of normal size and attenuation without hydronephrosis or nephrolithiasis. Following the administration of IV contrast, prompt symmetric nephrograms are displayed. There is no abdominal free fluid. There is neither mesenteric nor retroperitoneal lymphadenopathy. There is scattered sigmoid diverticula. There is nonspecific stranding noted about the sigmoid colon with equivocal wall thickening. There is also fat stranding noted about the rectum. Otherwise, unremarkable unopacified loops of small and large bowel are identified. There is no pelvic free fluid. The urinary bladder is unremarkable. There is neither pelvic nor inguinal lymphadenopathy. Bone windows: Neither sclerotic nor lytic bone lesions are identified. CT/CT abdomen pelvis w con IMPRESSION: Fat stranding noted about the sigmoid colon adjacent to diverticula with colonic wall thickening. There are no drainable fluid collections. There is additional fat stranding noted about the rectum. Findings are vendor representatives of an inflammatory or infectious process, favoring colitis over diverticulitis. Small hiatal hernia. Automated exposure control (Care Dose) Adjustment of the mA and/or kv according to patient size (this includes techniques or standardized protocols for targeted exams where dose is matched to indication / reason for exam; i.e. extremities or head).
--- NOTE | 2020-03-20 22:01 | ED_ITS ---
HPI - Nausea/Vomiting/Diarrhea General Chief complaint: Nausea/Vomiting/Diarrhea Stated complaint: N/V/WEAKNESS Time Seen by Provider: 03/20/20 21:49 Source: patient and EMS Mode of arrival: EMS Limitations: no limitations History of Present Illness HPI Narrative: patient comes to emergency room complaining of abdominal pain and vomiting. According to EMS, the patient reported that she started having the abdominal pain and vomiting after eating today in the afternoon. The patient states that she has been having abdominal pain for 4 days. Patient reports dark stools. Patient is currently taking Flagyl and Ceftin. Patient was diagnosed with diverticulitis on March 16 and was discharged on the ( yesterday). patient denies fever or chills, no diarrhea. Related Data Home Medications Medication Instructions Recorded Confirmed atorvastatin 40 mg tablet 40 mg PO BEDTIME 03/12/20 03/16/20 calcium carbonate 400 mg chewable 400 mg PO DAILY 03/12/20 03/16/20 tablet escitalopram oxalate 20 mg tablet 20 mg PO DAILY 03/12/20 03/16/20 hydrochlorothiazide 12.5 mg capsule 12.5 mg PO QAM 03/12/20 03/16/20 levothyroxine 75 mcg tablet 75 mcg PO DAILY 03/12/20 03/16/20 melatonin 3 mg capsule 3 mg PO BEDTIME PRN 03/12/20 03/16/20 metoclopramide HCl 5 mg tablet 5 mg PO .1-2 x's per day prn tab 03/12/20 03/16/20 oxybutynin chloride 10 mg 10 mg PO DAILY 03/12/20 03/16/20 tablet,extended release 24 hr bupropion HCl 150 mg PO DAILY 03/16/20 03/16/20 pantoprazole 40 mg PO DAILY 03/16/20 03/16/20 Previous Rx's Medication Instructions Recorded cefuroxime axetil 500 mg PO Q12H #8 tab 03/19/20 metoclopramide HCl 5 mg PO TIDAC PRN #10 tab 03/19/20 metronidazole [Flagyl] 500 mg PO Q8H #12 tab 03/19/20 Allergies Allergy/AdvReac Type Severity Reaction Status Date / Time penicillin V Allergy Severe SWELLING,RA Verified 03/15/20 23:04 Penicillins [PENICILLINS] Allergy Severe SWELLING,RA Verified 03/15/20 23:04 Review of Systems Review of Systems: Constitutional : No Weight loss, No Fever, No Chills, No Night Sweats, No Fatigue, No Malaise ENT/Mouth : No Hearing loss, No Ear Pain, No Nasal Congestion, No Sinus Pain, No Hoarseness, No sore throat, No Rhinorrhea, No Swallowing Difficulty Eyes: No Eye Pain, No Swelling, No Redness, No Foreign Body, No Discharge, No Vision Changes Cardiovascular : No Chest Pain, No SOB, No Dyspnea on Exertion, No Orthopnea, No Edema, No Palpitations Respiratory : No Cough, No Sputum, No Wheezing, No Smoke Exposure, No Dyspnea Gastrointestinal : Patient complaining of nausea, vomiting, no diarrhea constipation, left lower quadrant pain and black stool Genitourinary : no irregular bleeding, No Dysuria, No Urinary Frequency, No Hematuria, No Urinary Incontinence, No Urgency, No Flank Pain, No Urinary Flow Changes, No Hesitancy Musculoskeletal : No joint pain, No Myalgias, No Joint Swelling Skin : No Skin Lesions, No rash Neuro : No Weakness, No Numbness, No Paresthesias, No Loss of Consciousness, No Dizziness, No Headache Psych : No Anxiety/Panic, No Depression, No SI/HI/AH/VH, No Social Issues, Heme/Lymph: No Bruising, No Bleeding,No Lymphadenopathy Endocrine : No Polyuria, No Polydipsia, No Temperature Intolerance [facility] Past Medical History Medical History Anxiety Depression Restless leg syndrome Social History Social History Household Members: Significant Other Housing: Apartment Alcohol intake: never Smoking Status: Former smoker Tobacco Type: Cigarette Second Hand Smoke Exposure: No Advance Directives: No Advance Directives Information Provided: Yes service: No Current occupational status: retired Physical Exam Vital Signs: Vital Signs: Last Vital Signs Temp 97.8 F 03/20/20 20:19 Pulse 80 03/21/20 01:56 Resp 18 03/21/20 01:56 BP 152/69 H 03/21/20 01:56 Pulse Ox 100 03/21/20 01:56 Body Mass Index 24.7 Appearance: Alert. Oriented X3. patient speaking in a very soft voice, trying to go to sleep, patient looks very uncomfortable, curled up in position Eyes: Pupils equal, round and reactive to light. ENT: Pharynx normal. Neck: Normal inspection. Neck supple. No lymph nodes noted. No crepitus CVS: Normal heart rate and rhythm. Pulses normal. Normal S1 and S2 Respiratory: No respiratory distress. Breath sounds normal. No Wheezing. No r ales Abdomen: Soft , tender to palpation especially in the left lower quadrant, no rigidity Rectal: brown stool Skin: Skin warm and dry. Normal skin color. Normal skin turgor. Extremities: No lower extremity edema. No lower extremity edema. No Lacerations. No Rash Neuro: Oriented X 3. No motor deficit. No sensory deficit. Moving all extermities. No slurred speech. Course Course Course Narrative: patient's white blood cell count increased to 10.9. Although her labs are not too different than from discharge, patient does not look well. Patient is still having significant pain, diarrhea. C results pending. I discussed the above-mentioned with our hospitalist, patient being admitted. At this time sepsis is not suspected MDM - Nausea/Vomiting/Diarrhea Lab Data Result diagrams: 03/20/20 22:22 03/20/20 22:22 Labs: Lab Results 03/20/20 03/20/20 03/20/20 Range/Units 22:22 22:22 22:22 WBC 10.9 H (4.8-10.8) X10*3/uL RBC 3.30 L (4.20-5.50) X10*6/uL Hgb 10.3 L (12.0-16.0) g/dl Hct 30.3 L (37-47) % MCV 91.8 (80-98) fL MCH 31.2 (27.0-33.0) pg MCHC 34.0 (31.0-35.0) g/dl RDW 13.2 (11.0-16.0) % Plt Count 313 (160-400) X10*3/uL MPV 9.3 L (9.4-12.3) fL Immature Gran % (Auto) 0.3 (0.0-0.4) % Neut % (Auto) 87.2 H (45-73) % Lymph % (Auto) 8.2 L (20-40) % [place] % (Auto) 4.1 (2-11) % Eos % (Auto) 0.0 (0-4) % Baso % (Auto) 0.2 (0-2) % Lymph # (Auto) 0.9 L (1.2-4.9) X10*3/uL [place] # (Auto) 0.5 (0.1-1.2) X10*3/uL Eos # (Auto) 0.0 (0.0-0.4) X10*3/uL Baso # (Auto) 0.0 (0.0-0.2) X10*3/uL Abs Immat Gran (auto) 0.03 (0.00-0.03) X10*3/uL Absolute Neuts (auto) 9.5 H (2.0-8.3) X10*3/uL Absolute Nucleated RBC 0.000 (0.0-0.012) X10*3/uL Nucleated RBC % (auto) 0.0 (0.0-0.2) /100WBC Sodium 137 (135-145) mmol/L Potassium 3.4 (3.3-5.1) mmol/l Chloride 98 (96-108) mmol/L Carbon Dioxide 23 (22-29) mmol/L Anion Gap 19 (12-20) BUN 13 (9-16) mg/dL Creatinine 0.77 (0.5-1.4) mg/dL Estim Creat Clear Calc 51.7 Estimated GFR > 60 Random Glucose 103 D (60-115) mg/dL Lactic Acid 1.2 (0.5-2.0) mmol/L Calcium 8.0 L (8.4-10.2) mg/dL Total Bilirubin 1.0 (0.0-1.0) mg/dL Direct Bilirubin 0.4 (0.0-0.5) mg/dL AST 75 H (5-31) U/L ALT 49 H (0-31) U/L Alkaline Phosphatase 77 D (39-117) U/L Total Protein 6.3 L (6.5-8.0) g/dL Albumin 3.7 (3.5-5.0) g/dL Lipase 12 (8-78) U/L Urine Color Urine Appearance Urine pH (5.0-8.0) Ur Specific [place] (1.005-1.025) Urine Protein (NEG-TRACE) MG/DL Urine Glucose (UA) (NEG) MG/DL Urine Ketones (NEG) MG/DL Urine Blood (NEG) Urine Nitrite (NEG) Ur Leukocyte Esterase (NEG) Urine RBC (0) /HPF Urine WBC (0-4) /HPF Ur Squamous Epith Cells /LPF Urine Bacteria /LPF Stool Occult Blood (NEG) C. difficile Toxin A&B (Negative) C. difficile Antigen (Negative) C. difficile Interpret 03/20/20 03/21/20 03/21/20 Range/Units 22:43 01:49 01:50 WBC (4.8-10.8) X10*3/uL RBC (4.20-5.50) X10*6/uL Hgb (12.0-16.0) g/dl Hct (37-47) % MCV (80-98) fL MCH (27.0-33.0) pg MCHC (31.0-35.0) g/dl RDW (11.0-16.0) % Plt Count (160-400) X10*3/uL MPV (9.4-12.3) fL Immature Gran % (Auto) (0.0-0.4) % Neut % (Auto) (45-73) % Lymph % (Auto) (20-40) % [place] % (Auto) (2-11) % Eos % (Auto) (0-4) % Baso % (Auto) (0-2) % Lymph # (Auto) (1.2-4.9) X10*3/uL [place] # (Auto) (0.1-1.2) X10*3/uL Eos # (Auto) (0.0-0.4) X10*3/uL Baso # (Auto) (0.0-0.2) X10*3/uL Abs Immat Gran (auto) (0.00-0.03) X10*3/uL Absolute Neuts (auto) (2.0-8.3) X10*3/uL Absolute Nucleated RBC (0.0-0.012) X10*3/uL Nucleated RBC % (auto) (0.0-0.2) /100WBC Sodium (135-145) mmol/L Potassium (3.3-5.1) mmol/l Chloride (96-108) mmol/L Carbon Dioxide (22-29) mmol/L Anion Gap (12-20) BUN (9-16) mg/dL Creatinine (0.5-1.4) mg/dL Estim Creat Clear Calc Estimated GFR Random Glucose (60-115) mg/dL Lactic Acid (0.5-2.0) mmol/L Calcium (8.4-10.2) mg/dL Total Bilirubin (0.0-1.0) mg/dL Direct Bilirubin (0.0-0.5) mg/dL AST (5-31) U/L ALT (0-31) U/L Alkaline Phosphatase (39-117) U/L Total Protein (6.5-8.0) g/dL Albumin (3.5-5.0) g/dL Lipase (8-78) U/L Urine Color STRAW Urine Appearance CLEAR Urine pH 7.0 (5.0-8.0) Ur Specific [place] 1.010 (1.005-1.025) Urine Protein NEG (NEG-TRACE) MG/DL Urine Glucose (UA) NEG (NEG) MG/DL Urine Ketones 15 (NEG) MG/DL Urine Blood TRACE (NEG) Urine Nitrite NEG (NEG) Ur Leukocyte Esterase NEG (NEG) Urine RBC 0-2 (0) /HPF Urine WBC 0 (0-4) /HPF Ur Squamous Epith Cells 1+ /LPF Urine Bacteria NONE /LPF Stool Occult Blood NEG (NEG) C. difficile Toxin A&B Negative (Negative) C. difficile Antigen Negative (Negative) C. difficile Interpret SEE NOTE Imaging Data CT scan - abdomen: Radiologist's impression: The visualized lung bases are clear. The visualized portions of the heart are unremarkable. There is a small hiatal hernia. The liver is of normal size and attenuation without focal lesions nor intrahepatic biliary ductal dilation. A normal gallbladder is identified. There is no wall thickening or discernible pericholecystic fluid. The spleen, pancreas, adrenal glands are unremarkable. Both kidneys are of normal size and attenuation without hydronephrosis or nephrolithiasis. Following the administration of IV contrast, prompt symmetric nephrograms are displayed. There is no abdominal free fluid. There is neither mesenteric nor retroperitoneal lymphadenopathy. There is scattered sigmoid diverticula. There is nonspecific stranding noted about the sigmoid colon with equivocal wall thickening. There is also fat stranding noted about the rectum. Otherwise, unremarkable unopacified loops of small and large bowel are identified. There is no pelvic free fluid. The urinary bladder is unremarkable. There is neither pelvic nor inguinal lymphadenopathy. Bone windows: Neither sclerotic nor lytic bone lesions are identified. CT/CT abdomen pelvis w con IMPRESSION: Fat stranding noted about the sigmoid colon adjacent to diverticula with colonic wall thickening. There are no drainable fluid collections. There is additional fat stranding noted about the rectum. 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 Small hiatal hernia. Discharge Plan Discharge Clinical Impression: Colitis Patient Disposition: Admitted As Inpatient Prescriptions: No Action bupropion HCl 150 mg tablet sustained-release 12 hr 150 mg PO DAILY RF: 0 pantoprazole 40 mg tablet,delayed release (DR/EC) 40 mg PO DAILY RF: 0 metoclopramide HCl 5 mg Tablet 5 mg PO TIDAC PRN (Reason: nausea and vomiting) Qty: 10 RF: 0 cefuroxime axetil 500 mg tablet 500 mg PO Q12H Qty: 8 RF: 0 metronidazole [Flagyl] 500 mg tablet 500 mg PO Q8H Qty: 12 RF: 0 escitalopram oxalate 20 mg tablet 20 mg PO DAILY RF: 0 atorvastatin 40 mg tablet 40 mg PO BEDTIME RF: 0 melatonin 3 mg capsule 3 mg PO BEDTIME PRN (Reason: Sleep) RF: 0 levothyroxine 75 mcg tablet 75 mcg PO DAILY RF: 0 hydrochlorothiazide 12.5 mg capsule 12.5 mg PO QAM RF: 0 calcium carbonate 400 mg tablet,chewable 400 mg PO DAILY RF: 0 oxybutynin chloride 10 mg tablet extended release 24hr 10 mg PO DAILY RF: 0 metoclopramide HCl [Reglan] 5 mg tablet 5 mg PO .1-2 x's per day prn RF: 0
[2020-03-20] MEDS: 0.9 % Sodium Chloride 1,000 ML 999 ML IVCONT (22:26)
[2020-03-20] MEDS: ondansetron HCL 4 MG/2 ML VIAL IVPUSH (22:26)
[2020-03-20 22:27] LABS: MANUAL DIFF FLAG NO
[2020-03-20 22:28] LABS: Basophils Percent Auto 0.2 % (0-2); Hematocrit 30.3 % (37-47); Hemoglobin 10.3 g/dl (12.0-16.0); Imm Gran Abs Auto 0.03 X10*3/uL (0.00-0.03); Imm Gran Pct Auto 0.3 % (0.0-0.4); Lymphocytes Absolute Auto 0.9 X10*3/uL (1.2-4.9); Lymphocytes Percent Auto 8.2 % (20-40); Mean Corpuscular Hemoglobin 31.2 pg (27.0-33.0); Mean Corpuscular Volume 91.8 fL (80-98); Mean Platelet Volume 9.3 fL (9.4-12.3); Monocytes Absolute Auto 0.5 X10*3/uL (0.1-1.2); Monocytes Percent Auto 4.1 % (2-11); Neutrophils Absolute Auto 9.5 X10*3/uL (2.0-8.3); Neutrophils Percent Auto 87.2 % (45-73); Platelet Count 313 X10*3/uL (160-400); Red Cell Distribution Width 13.2 % (11.0-16.0); White Blood Count 10.9 X10*3/uL (4.8-10.8)
--- NOTE | 2020-03-20 22:47 | PC.NURSE ---
PATIENT WAS INC OF LOOSE STOOL LG AMOUNT ,DR AWARE .
[2020-03-20 22:56] LABS: OBS Int Ctl Valid YES; OBS1 NEG (NEG)
[2020-03-20 22:58] LABS: Lactic Acid 1.2 mmol/L (0.5-2.0)
[2020-03-20 23:09] LABS: Alanine Aminotransferase 49 U/L (0-31); Albumin Level 3.7 g/dL (3.5-5.0); Alkaline Phosphatase 77 U/L (39-117); Anion Gap 19 (12-20); Aspartate Amino Transferase 75 U/L (5-31); Bilirubin Direct 0.4 mg/dL (0.0-0.5); Blood Urea Nitrogen 13 mg/dL (9-16); Carbon Dioxide 23 mmol/L (22-29); Chloride 98 mmol/L (96-108); Creatinine Clr Calc Pharmacy 51.7; Estimated Glomerular Filt Rate > 60; Glucose Random 103 mg/dL (60-115); Lipase 12 U/L (8-78); Potassium 3.4 mmol/l (3.3-5.1); Sodium 137 mmol/L (135-145); Total Protein 6.3 g/dL (6.5-8.0)
--- NOTE | 2020-03-20 23:37 | PC.NURSE ---
2 episodes of brown diarrhea. pt brought tp bathroom before transported to CT scan.
[2020-03-20] MEDS: iohexoL 350 MG/ML 100 ML INFUS..BTL 85 ML IV (23:47)
[2020-03-21] VITALS (8 sets, daily range): BP systolic 100–155; BP diastolic 50–70; PULSE 70–80; RESP 16–18; TEMP 35.9–37.1; O2SAT 94–100
--- NOTE | 2020-03-21 01:24 | PC.NURSE ---
pt has madew several trips to the bathroom with diarrhea. pt unable to provide a clean sample, fecal material mixed in with urine.
--- NOTE | 2020-03-21 01:57 | PC.NURSE ---
stool sample, blood cultures and clean urine sample obtained. pt still nauseous. pt given a few ice chips.
[2020-03-21 02:07] LABS: Glucose Urine UA NEG (NEG); Leukocyte Esterase Urine NEG (NEG); Nitrite Urine NEG (NEG); Urine Blood TRACE (NEG); Urine Ketones 15 MG/DL (NEG); Urine Protein NEG (NEG-TRACE)
[2020-03-21 02:14] LABS: Appearance Urine CLEAR; Color Urine STRAW
[2020-03-21 02:17] LABS: RBC Urine 0-2 /HPF (0); Squamous Epithelial Cell Urine 1+ /LPF; WBC Urine 0 /HPF (0-4)
--- NOTE | 2020-03-21 02:39 | PC.NURSE ---
md huff wants efra held, pt not in failure. RN insulation supervisor calling pharmacy for remdesivir.
[2020-03-21 02:56] LABS: CDIFF Ag Negative (Negative)
[2020-03-21 02:57] LABS: CDIFF Internal ctrl Dots and bkg OK (V); CDiff Toxin Negative (Negative)
[2020-03-21] MEDS: 0.9 % Sodium Chloride 1,000 ML 999 ML IVCONT (04:11)
[2020-03-21] MEDS: levoFLOXacin/D5W 500 MG/100 ML PIGGYBACK 100 MG IV (04:11)
[2020-03-21 04:41] LABS: COVID-19 Test Negative (Negative); IDNOW Serial# 9DD0AD1C
[2020-03-21] MEDS: metroNIDAZOLE/NS 500 MG/100 ML PIGGYBACK 100 MG IV ×2 (05:38→17:17)
--- NOTE | 2020-03-21 05:52 | PC.NURSE ---
PT ASSISTED TO BATHROOM SEVERAL TIMES. PT STILL FEELING NAUSEOUS AND SKIN IS PALE.
--- NOTE | 2020-03-21 06:18 | PC.NURSE ---
AWAITING HOSPITALIST EVALUATION.
[2020-03-21] MEDS: ondansetron HCL 4 MG/2 ML VIAL IVPUSH (07:08)
[2020-03-21] MEDS: Enoxaparin Sodium 40 MG/0.4 ML SYRINGE SUBCUT (09:47)
--- NOTE | 2020-03-21 11:38 | PC.NURSE ---
patient currently sleeping, rr 18, pt awaiting a inpt bed
--- NOTE | 2020-03-21 11:46 | PM.IMHP ---
History of Present Illness Date of Service: 03/21/20 Chief Complaint: Nausea, vomitting, diarrhea and abdominal pain Review of Systems Review of Systems: Gen: no fever Resp: no sob, no cough CV: no chest, no SHAVER, no leg edema GI: +N/V, abominl Neuro: No confusion All other system reviewed and are negative [facility] Medical History Anxiety Depression Depression Fatigue Hypothyroidism Restless leg syndrome Functional capacity: independent ambulation Pertinent family history: 69 year old female seen in ED March 16 with abdominal pain and diagnosed with colitis and admitted to the hospital until March 19 and treated with IV Ceftriaxone and Flagyl and discharged home with Ceftin and Flagyl and returns to the ED just a day after with same symptps of nausea, vomiting and abddominal pain. She denies fever and sick contact, no travel. CT of abdomen does sow colitis. She's given Flagyl and Levaquin this time. Family history: reviewed and not pertinent Social History Household Members: Significant Other Housing: Apartment Alcohol intake: never Smoking Status: Former smoker Tobacco Type: Cigarette Second Hand Smoke Exposure: No Advance Directives: No Advance Directives Information Provided: Yes service: No Current occupational status: retired Meds Allergies Allergy/AdvReac Type Severity Reaction Status Date / Time penicillin V Allergy Severe SWELLING,RA Verified 03/15/20 23:04 Penicillins [PENICILLINS] Allergy Severe SWELLING,RA Verified 03/15/20 23:04 Home Medications Medication Instructions Recorded Confirmed Type atorvastatin 40 mg tablet 40 mg PO BEDTIME 03/12/20 03/16/20 History calcium carbonate 400 mg chewable 400 mg PO DAILY 03/12/20 03/16/20 History tablet escitalopram oxalate 20 mg tablet 20 mg PO DAILY 03/12/20 03/16/20 History hydrochlorothiazide 12.5 mg capsule 12.5 mg PO QAM 03/12/20 03/16/20 History levothyroxine 75 mcg tablet 75 mcg PO DAILY 03/12/20 03/16/20 History melatonin 3 mg capsule 3 mg PO BEDTIME PRN 03/12/20 03/16/20 History metoclopramide HCl 5 mg tablet 5 mg PO .1-2 x's per day prn tab 03/12/20 03/16/20 History oxybutynin chloride 10 mg 10 mg PO DAILY 03/12/20 03/16/20 History tablet,extended release 24 hr bupropion HCl 150 mg PO DAILY 03/16/20 03/16/20 History pantoprazole 40 mg PO DAILY 03/16/20 03/16/20 History Physical Exam Vital Signs and Narrative: Vital Signs: Last Vital Signs Temp 98.6 F 03/21/20 09:19 Pulse 72 03/21/20 09:19 Resp 18 03/21/20 11:38 BP 111/56 L 03/21/20 09:19 Pulse Ox 98 03/21/20 09:19 Body Mass Index 24.7 Results Labs CBC and Chem 7: 03/20/20 22:22 03/20/20 22:22 Labs: Laboratory Results - last 24 hr 03/20/20 03/20/20 03/20/20 22:22 22:22 22:22 MCV 91.8 MCH 31.2 MCHC 34.0 RDW 13.2 Plt Count 313 MPV 9.3 L Immature Gran % (Auto) 0.3 Neut % (Auto) 87.2 H Lymph % (Auto) 8.2 L Hubbard % (Auto) 4.1 Eos % (Auto) 0.0 Baso % (Auto) 0.2 Lymph # (Auto) 0.9 L Hubbard # (Auto) 0.5 Eos # (Auto) 0.0 Baso # (Auto) 0.0 Abs Immat Gran (auto) 0.03 Absolute Neuts (auto) 9.5 H Absolute Nucleated RBC 0.000 Nucleated RBC % (auto) 0.0 Anion Gap 19 Estim Creat Clear Calc 51.7 Estimated GFR > 60 Random Glucose 103 D Lactic Acid 1.2 Calcium 8.0 L Total Bilirubin 1.0 Direct Bilirubin 0.4 AST 75 H ALT 49 H Alkaline Phosphatase 77 D Total Protein 6.3 L Albumin 3.7 Lipase 12 Urine Color Urine Appearance Urine pH Ur Specific [place] Urine Protein Urine Glucose (UA) Urine Ketones Urine Blood Urine Nitrite Ur Leukocyte Esterase Urine RBC Urine WBC Ur Squamous Epith Cells Urine Bacteria Stool Occult Blood C. difficile Toxin A&B C. difficile Antigen C. difficile Interpret COVID-19 ([facility]) COVID-19 Clin Com 03/20/20 03/21/2020 22:43 01:49 01:50 MCV MCH MCHC RDW Plt Count MPV Immature Gran % (Auto) Neut % (Auto) Lymph % (Auto) Hubbard % (Auto) Eos % (Auto) Baso % (Auto) Lymph # (Auto) Hubbard # (Auto) Eos # (Auto) Baso # (Auto) Abs Immat Gran (auto) Absolute Neuts (auto) Absolute Nucleated RBC Nucleated RBC % (auto) Anion Gap Estim Creat Clear Calc Estimated GFR Random Glucose Lactic Acid Calcium Total Bilirubin Direct Bilirubin AST ALT Alkaline Phosphatase Total Protein Albumin Lipase Urine Color STRAW Urine Appearance CLEAR Urine pH 7.0 Ur Specific [place] 1.010 Urine Protein NEG Urine Glucose (UA) NEG Urine Ketones 15 Urine Blood TRACE Urine Nitrite NEG Ur Leukocyte Esterase NEG Urine RBC 0-2 Urine WBC 0 Ur Squamous Epith Cells 1+ Urine Bacteria NONE Stool Occult Blood NEG C. difficile Toxin A&B Negative C. difficile Antigen Negative C. difficile Interpret SEE NOTE COVID-19 ([facility]) COVID-[place] 03/21/20 04:10 MCV MCH MCHC RDW Plt Count MPV Immature Gran % (Auto) Neut % (Auto) Lymph % (Auto) Hubbard % (Auto) Eos % (Auto) Baso % (Auto) Lymph # (Auto) Hubbard # (Auto) Eos # (Auto) Baso # (Auto) Abs Immat Gran (auto) Absolute Neuts (auto) Absolute Nucleated RBC Nucleated RBC % (auto) Anion Gap Estim Creat Clear Calc Estimated GFR Random Glucose Lactic Acid Calcium Total Bilirubin Direct Bilirubin AST ALT Alkaline Phosphatase Total Protein Albumin Lipase Urine Color Urine Appearance Urine pH Ur Specific [place] Urine Protein Urine Glucose (UA) Urine Ketones Urine Blood Urine Nitrite Ur Leukocyte Esterase Urine RBC Urine WBC Ur Squamous Epith Cells Urine Bacteria Stool Occult Blood C. difficile Toxin A&B C. difficile Antigen C. difficile Interpret COVID-19 ([facility]TRAN) Negative COVID-[place] See Note Imaging Radiologist's Impressions: Impressions Abdomen/Pelvis CT 03/20/20 21:58 IMPRESSION: Fat stranding noted about the sigmoid colon adjacent to diverticula with colonic wall thickening. There are no drainable fluid collections. There is additional fat stranding noted about the rectum. 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 Small hiatal hernia. Automated exposure control (Care Dose) Adjustment of the mA and/or kv according to patient size (this includes techniques or standardized protocols for targeted exams where dose is matched to indication / reason for exam; i.e. extremities or head). Assessment and Plan (1) Colitis: Status: Acute 69 years old female with PMH of HTN, hypothyroidism, depression being readmitted Acute colitis--unresolved from last admisson -clinically better -continue Levaquin and Flagyl and consider GI eval Zofran for nausea PRN -GI consult given reguc GERD Continue omeprazole Hypothyroidism Continue levothyroxine Hypertension continue hydrochlorothiazide DVT PPX Lovenox
--- NOTE | 2020-03-21 12:51 | PC.NURSE ---
report called to the floor
[2020-03-21] MEDS: Dextrose 5 % and 0.45 % NaCl 1,000 ML 100 ML IVCONT (15:37)
[2020-03-21] MEDS: 0.9 % Sodium Chloride Flush 3 ML SYRINGE IVFLUSH (15:38)
[2020-03-21] MEDS: Omeprazole 20 MG CAPSULE.DR PO (17:16)
--- NOTE | 2020-03-21 18:33 | PM.GICN ---
History of Present Illness Data of Consult Service Date: 03/21/20 Requesting physician: Nikita Leyva Primary Care Provider: Randolph Thomas M.D. [facility] Reason for consult: Colitis 69 YF seen at [facility] ED on 03/16/20 with abd pain, nausea and vomiting. Abd CT scan showed mild fat stranding noted about decompressed loops of sigmoid colon with a few scattered diverticula. The appearance is suggestive of mild manifestations of colitis. Pt was admitted and treated with IV flagyl and ceftriaxone and discharged home on 03/19/20 on PO antibiotics (Flagyl and ceftin). She returned to the ER yesterday with worsening symptoms: patient comes to emergency room complaining of abdominal pain and vomiting. According to EMS, the patient reported that she started having the abdominal pain and vomiting after eating today in the afternoon. The patient states that she has been having abdominal pain for 4 days. Patient reports dark stools. Patient is currently taking Flagyl and Ceftin. Patient was diagnosed with diverticulitis on March 16 and was discharged on the ( yesterday). patient denies fever or chills, no diarrhea.IMAGING STUDIES: 03/20/[address] SCAN SHOWED: Fat stranding noted about the sigmoid colon adjacent to diverticula with colonic wall thickening. There are no drainable fluid collections. There is additional fat stranding noted about the rectum. 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 Small hiatal hernia. Patient complains of a change in bowel habits for the past 6 months - no BM x 4-5 days followed by passage of soft to loose stools. She has noted intermittent black stools She has noted persistent diarrhea for the past 3 weeks followed by LLQ pain nausea, vomiting. Pt has a hsitory of chronic heartburn with regurgitation despite taking pantprazole twice daily. She denies problems with dysphagia or odynophagia. She admits to unintentional weight loss of > 20 lbs over the past 2 yrs. Patient denies major cardiac or pulmonary problems, loud snoring or sleep apnea Denies problems with anesthesia in the past. Denies being on chronic anticoagulation or use of NSAID or aspirin. Patient denies known family history of IBD, colon polyps, colon cancer or other GI malignancies. PAST EGD/COLONOSCOPY: EGD in October 2017 showed: ESOPHAGUS: Hiatal hernia, stricture/ring at GE junction dilated with a CRE balloon. Bx of ulcer were benign. 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 an Ulcer @ GE junction, Fundic gland hyperplasia. She had a colonoscopy a couple of years ago at [facility]. She reports her results to have been normal. PAST GI HISTORY BY REVIEW OF MEDICAL RECORDS: Pt was seen by Dr Hood on 01/31/20: 1. Black stool - K92.1 (Primary) 2. Constipation - K59.00, Has MiraLax at home, has not used as yet. Jamia is a new patient to me. She has been seen by Dr. Matthews and Vernell Parry in the past. She does have PMHx of anemia and was a little worse in June 2019. Her recent H/H was 9.6/28.0 from 10.5/37.7; MCV, Platelet count, WBC normal, Fe normal; INR 1.1; Jan 2020 Chem profile shows possible mild early CKD with BUN at 21 and creatinine at 1.02; GFR at 54 from 60; Albumin 4.0; Liver profile normal; B12 acceptable; TSH at 4.12 in December and 5.72 in January; Free T4 in January was 0.99. She had an upper GI done on May 12, 2019 which was noted for small gastric ulcers. She was hospitalized in June 2019 for gastroenteritis, vomiting, and diarrhea. At that time her WBC was up. She presented to the ER for LLQ pain - CT--(06/2019) abdomen showed small moderate hiatal hernia and sigmoid diverticulosis; liver normal; spleen and pancreas normal. She had had an EGD in October [address] Matthews: Ulcer @ GE junction, Fundic gland hyperplasia. Her sleep study done by Dr. Page was noted for extra muscle motor activity of her BL UE LE; negative for sleep apnea. The extra movement during sleep can cause her to not wake feeling rested and add to her daytime fatigue. I recommend that she follow up with her PCP next month to discuss further. Her weight has unintentionally decreased from 138 to 114. She has followed Dr. Thomas for this whom, she states, was not concerned. She had a colonoscopy a couple of years ago at [facility]. She reports her results to have been normal. I feel that we should check the stool for microscopic bleeding. My office will send her a FIT card. Also, because of her persistent heartburn, I would like her to take her Pantoprazole in the morning and again at bedtime. In terms of the constipation tendency, I would like to start her on magnesium oxide once daily. She will follow up with me in 6 weeks. I will have my office contact her to schedule this. Will continue to monitor her weight and degree of persistent symptoms. Review of Systems Constitutional: Constitutional: Reports fatigue, Denies fever(s), Denies headache(s) and Reports weight loss Eyes: Eyes: Denies eye discharge and Denies irritation ENT: Reports Normal hearing present, Denies dysphagia, Denies dizziness and Denies headache(s) Cardiovascular: Cardiovascular: Denies chest pain, Denies leg edema, Reports dyspnea (asthma/?COPD) and Denies dyspnea on exertion Respiratory: Respiratory: Denies cough, Reports dyspnea (asthma/?COPD), Denies dyspnea on exertion and Denies wheezing Gastrointestinal: Gastrointestinal: Reports abdominal pain, Denies change in bowel habits, Denies dysphagia, Denies heartburn, Reports diarrhea, Reports nausea and Reports vomiting Genitourinary: Genitourinary: Denies difficulty voiding and Denies dysuria Musculoskeletal: Musculoskeletal: Denies back pain and Denies arthralgias Integumentary/Breasts: Skin/Breast: Denies pruritus, Denies rash and Denies jaundice Neurologic: Reports Normal hearing present, Denies Abnormal speech present, Denies dizziness, Denies headache(s) and Denies seizure-like activity Psychiatric: Psychiatric: Denies anxiety, Denies depression and Denies panic attacks Endocrine: Endocrine: Denies cold intolerance, Reports fatigue, Denies flushing and Denies heat intolerance Hematologic/Lymphatic: Hematologic/Lymphatic: Denies easy bleeding and Denies easy bruising Allergic/Immunologic: Allergic/Immunologic: Denies wheezing PMFSH Past Medical History Medical History Anxiety Depression Depression Fatigue Hypothyroidism Restless leg syndrome Functional capacity: independent ambulation Family History Family history: reviewed and not pertinent Social History Social History (Updated 03/21/20 @ 19:53 by Beverly Matthews MD) Household Members: Significant Other Housing: Apartment Do you presently have visiting nurse or other home services: No Alcohol intake: never Smoking Status: Never smoker Tobacco Type: Cigarette Second Hand Smoke Exposure: No Use of substances other than those prescribed or required for medical reasons: No Currently Displaying Signs/Symptoms of Drug Intoxication Withdrawal: No Have you been hit, kicked, punched, or otherwise hurt by someone within the past year? 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 [id number] Allergies Allergy/AdvReac Type Severity Reaction Status Date / Time penicillin V Allergy Severe SWELLING,RA Verified 03/15/20 23:04 Penicillins [PENICILLINS] Allergy Severe SWELLING,RA Verified 03/15/20 23:04 Home Medications Medication Instructions Recorded Confirmed Type atorvastatin 40 mg tablet 40 mg PO DAILY 03/12/20 03/21/20 History escitalopram oxalate 20 mg tablet 20 mg PO DAILY 03/12/20 03/21/20 History hydrochlorothiazide 12.5 mg capsule 12.5 mg PO QAM 03/12/20 03/21/20 History levothyroxine 75 mcg tablet 75 mcg PO DAILY@0630 03/12/20 03/21/20 History melatonin 3 mg capsule 3 mg PO BEDTIME 03/12/20 03/21/20 History oxybutynin chloride 10 mg 10 mg PO DAILY 03/12/20 03/21/20 History tablet,extended release 24 hr bupropion HCl 150 mg PO DAILY 03/16/20 03/21/20 History pantoprazole 40 mg PO BID@0630,1630 03/16/20 03/21/20 History Centrum Silver Women 1 tab PO DAILY 03/21/20 03/21/20 History calcium carbonate-vitamin D3 1 tab PO DAILY 03/21/20 03/21/20 History [Calcium 500 + D] Physical Exam Vital Signs: Vital Signs: Last Vital Signs Temp 96.9 F 03/21/20 15:53 Pulse 70 03/21/20 15:53 Resp 18 03/21/20 15:53 BP 106/59 L 03/21/20 15:53 Pulse Ox 100 03/21/20 15:53 Body Mass Index 24.7 Const: General: healthy appearing and no acute distress Nutritional Appearance: average body habitus Orientation/consciousness: patient oriented x3 Limitations: no limitations HENMT: Head: Yes normal to inspection Ears: hearing grossly normal bilaterally Mouth: Normal oral and palatal mucosa present Eyes: Sclerae: sclerae normal Pupils: Equal, round and reactive pupils present Neck: Neck: Yes normal visual inspection Chest: Chest palpation & inspection: normal inspection of the chest Resp: Effort & Inspection: normal respiratory effort Auscultation: clear to auscultation bilaterally Cardio: Palpation: normal PMI Rate: regular rate Rhythm: regular rhythm Heart sounds: S1 normal heart sound present, S2 normal heart sound present and no murmurs GI: Palpation (GI): Soft to palpation, Tenderness to palpation present (GI) (LLQ tenderness) and No hepatosplenomegaly present Auscultation: normal bowel sounds Rectal Exam - Female: deferred Skin: General skin exam: no rashes or lesions noted Neuro: General: patient oriented x3, gait normal and moves all extremities Cranial nerves: Yes Equal, round and reactive pupils present and Yes Normal hearing present Speech: No Abnormal speech present Psych: Appearance: grossly normal Mental Status: mental status grossly normal Results Labs CBC & Chem 7: 03/23/20 08:14 03/20/20 22:22 Labs: Short CBC 03/20/20 Range/Units 22:22 WBC 10.9 H (4.8-10.8) X10*3/uL Hgb 10.3 L (12.0-16.0) g/dl Hct 30.3 L (37-47) % Plt Count 313 (160-400) X10*3/uL BMP 03/20/20 22:22 Sodium 137 Potassium 3.4 Chloride 98 Carbon Dioxide 23 BUN 13 Creatinine 0.77 Calcium 8.0 L Liver Function 03/20/20 Range/Units 22:22 Total Bilirubin 1.0 (0.0-1.0) mg/dL Direct Bilirubin 0.4 (0.0-0.5) mg/dL AST 75 H (5-31) U/L ALT 49 H (0-31) U/L Alkaline Phosphatase 77 D (39-117) U/L Albumin 3.7 (3.5-5.0) g/dL Urine 03/21/20 Range/Units 01:49 Urine Color STRAW Urine Appearance CLEAR Urine pH 7.0 (5.0-8.0) Ur Specific [place] 1.010 (1.005-1.025) Urine Protein NEG (NEG-TRACE) MG/DL Urine Glucose (UA) NEG (NEG) MG/DL Assessment and Plan (1) Colitis: Status: Acute (2) GERD (gastroesophageal reflux disease): Status: Acute 69 YF with hypertension, hypercholesterolemia, hypothyroidism, asthma. GERD admitted with LLQ pain, nausea, vomiting and diarrhea. Abdominal CT scan showed wall thickening of sigmoid colon and she is being treated with IV antibiotics. Sigmoid wall thickening can be due to ischemic colitis versus left sided ulcerative colitis. Pt has a history of intermittent black stools and unintentional weight loss of 20 lbs over the past 2 yrs. Recent iron studies were suggestive of anemia of chronic disease +/- iron def anemia. Elevated LFTs likely due to fatty liver. RECOMMENDATIONS: 1. Continue IV antibiotics 2. She needs further evaluation with EGD and colonoscopy once colitis resolves - can be scheduled as an outpatient. 3. Hepatitis serologies to Fu on elevated LFTs Procedures Abscess I/D Date of Service: 03/21/20
--- NOTE | 2020-03-21 20:40 | P.CNGI_ITS ---
History of Present Illness Data of Consult Service Date: 03/21/20 Requesting physician: Nikita Leyva Primary Care Provider: Unknown Physician HPI Reason for consult: recurrent colitis Review of Systems Constitutional: Constitutional: Denies headache(s) ENT: Reports Normal hearing present, Denies dizziness and Denies headache(s) Neurologic: Reports Normal hearing present, Denies Abnormal speech present, Denies dizziness, Denies headache(s) and Denies seizure-like activity [facility] Past Medical History Medical History Anxiety Depression Depression Fatigue Hypothyroidism Restless leg syndrome Functional capacity: independent ambulation Family History Pertinent family history: 69 year old female seen in ED March 16 with abdominal pain and diagnosed with colitis and admitted to the hospital until March 19 and treated with IV Ceftriaxone and Flagyl and discharged home with Ceftin and Flagyl and returns to the ED just a day after with same symptps of nausea, vomiting and abddominal pain. She denies fever and sick contact, no travel. CT of abdomen does sow colitis. She's given Flagyl and Levaquin this time. Family history: reviewed and not pertinent Social History Social History (Updated 03/21/20 @ 19:53 by Beverly Matthews MD) Household Members: Significant Other Housing: Apartment Do you presently have visiting nurse or other home services: No Alcohol intake: never Smoking Status: Never smoker Tobacco Type: Cigarette Second Hand Smoke Exposure: No Use of substances other than those prescribed or required for medical reasons: No Have you been hit, kicked, punched, or otherwise hurt by someone within the past year? 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 Meds Allergies Allergy/AdvReac Type Severity Reaction Status Date / Time penicillin V Allergy Severe SWELLING,RA Verified 03/15/20 23:04 Penicillins [PENICILLINS] Allergy Severe SWELLING,RA Verified 03/15/20 23:04 Home Medications Medication Instructions Recorded Confirmed Type atorvastatin 40 mg tablet 40 mg PO DAILY 03/12/20 03/21/20 History escitalopram oxalate 20 mg tablet 20 mg PO DAILY 03/12/20 03/21/20 History hydrochlorothiazide 12.5 mg capsule 12.5 mg PO QAM 03/12/20 03/21/20 History levothyroxine 75 mcg tablet 75 mcg PO DAILY@0630 03/12/20 03/21/20 History melatonin 3 mg capsule 3 mg PO BEDTIME 03/12/20 03/21/20 History oxybutynin chloride 10 mg 10 mg PO DAILY 03/12/20 03/21/20 History tablet,extended release 24 hr bupropion HCl 150 mg PO DAILY 03/16/20 03/21/20 History pantoprazole 40 mg PO BID@0630,1630 03/16/20 03/21/20 History calcium carbonate-vitamin D3 1 tab PO DAILY 03/21/20 03/21/20 History [Calcium 500 + D] pzuneolk-iah-[id number]-FA-lutein 1 tab PO DAILY 03/21/20 03/21/20 History [Centrum Silver Women] Physical Exam Vital Signs: Vital Signs: Last Vital Signs Temp 98.3 F 03/21/20 19:41 Pulse 75 03/21/20 19:41 Resp 18 03/21/20 19:41 BP 107/50 L 03/21/20 19:41 Pulse Ox 100 03/21/20 19:41 Body Mass Index 24.7 Appearance: Alert. Oriented X3. patient speaking in a very soft voice, trying to go to sleep, patient looks very uncomfortable, curled up in position Eyes: Pupils equal, round and reactive to light. ENT: Pharynx normal. Neck: Normal inspection. Neck supple. No lymph nodes noted. No crepitus CVS: Normal heart rate and rhythm. Pulses normal. Normal S1 and S2 Respiratory: No respiratory distress. Breath sounds normal. No Wheezing. No rales Abdomen: Soft , tender to palpation especially in the left lower quadrant, no rigidity Rectal: brown stool Skin: Skin warm and dry. Normal skin color. Normal skin turgor. Extremities: No lower extremity edema. No lower extremity edema. No Lacerations. No Rash Neuro: Oriented X 3. No motor deficit. No sensory deficit. Moving all ex termities. No slurred speech. Const: General: healthy appearing and no acute distress Nutritional Appearance: average body habitus Orientation/consciousness: patient oriented x3 Limitations: no limitations HENMT: Head: Yes normal to inspection Ears: hearing grossly normal bilaterally Mouth: Normal oral and palatal mucosa present Eyes: Sclerae: sclerae normal Pupils: Equal, round and reactive pupils present Neck: Neck: Yes normal visual inspection Chest: Chest palpation & inspection: normal inspection of the chest Resp: Effort & Inspection: normal respiratory effort Auscultation: clear to auscultation bilaterally Cardio: Palpation: normal PMI Rate: regular rate Rhythm: regular rhythm Heart sounds: S1 normal heart sound present, S2 normal heart sound present and no murmurs GI: Palpation (GI): Soft to palpation, Tenderness to palpation present (GI) (LLQ tenderness) and No hepatosplenomegaly present Auscultation: normal bowel sounds Rectal Exam - Female: deferred Skin: General skin exam: no rashes or lesions noted Neuro: General: patient oriented x3, gait normal and moves all extremities Cranial nerves: Yes Equal, round and reactive pupils present and Yes Normal hearing present Speech: No Abnormal speech present Psych: Appearance: grossly normal Mental Status: mental status grossly normal Results Labs CBC & Chem 7: 03/20/20 22:22 03/20/20 22:22 Labs: Short CBC 03/20/20 Range/Units 22:22 WBC 10.9 H (4.8-10.8) X10*3/uL Hgb 10.3 L (12.0-16.0) g/dl Hct 30.3 L (37-47) % Plt Count 313 (160-400) X10*3/uL BMP 03/20/20 22:22 Sodium 137 Potassium 3.4 Chloride 98 Carbon Dioxide 23 BUN 13 Creatinine 0.77 Calcium 8.0 L Liver Function 03/20/20 Range/Units 22:22 Total Bilirubin 1.0 (0.0-1.0) mg/dL Direct Bilirubin 0.4 (0.0-0.5) mg/dL AST 75 H (5-31) U/L ALT 49 H (0-31) U/L Alkaline Phosphatase 77 D (39-117) U/L Albumin 3.7 (3.5-5.0) g/dL Urine 03/21/20 Range/Units 01:49 Urine Color STRAW Urine Appearance CLEAR Urine pH 7.0 (5.0-8.0) Ur Specific [place] 1.010 (1.005-1.025) Urine Protein NEG (NEG-TRACE) MG/DL Urine Glucose (UA) NEG (NEG) MG/DL
[2020-03-21] MEDS: Atorvastatin Calcium 40 MG TABLET PO (21:10)
[2020-03-21] MEDS: Melatonin 3 MG TABLET PO (21:10)
[2020-03-22] VITALS (7 sets, daily range): BP systolic 101–131; BP diastolic 51–63; PULSE 60–78; RESP 16–18; TEMP 36–37; O2SAT 97–100
[2020-03-22] MEDS: metroNIDAZOLE/NS 500 MG/100 ML PIGGYBACK 100 MG IV ×3 (01:19→17:47)
[2020-03-22] MEDS: Dextrose 5 % and 0.45 % NaCl 1,000 ML 100 ML IVCONT ×2 (04:32→14:19)
[2020-03-22] MEDS: Omeprazole 20 MG CAPSULE.DR PO ×2 (06:25→16:20)
[2020-03-22] MEDS: Levothyroxine Sodium 75 MCG TABLET PO (06:25)
[2020-03-22] MEDS: levoFLOXacin/D5W 500 MG/100 ML PIGGYBACK 100 MG IV (06:26)
[2020-03-22 07:26] LABS: C Reactive Protein 0.86 mg/dL (< or = 0.50)
[2020-03-22] MEDS: 0.9 % Sodium Chloride Flush 3 ML SYRINGE IVFLUSH (07:55)
[2020-03-22 08:01] LABS: HBS Num1 0.83 mIU/mL (0-7.99); HBc Num1 0.04 S/CO (0.00-0.79); HBsAGNum1 0.33 S/CO (0.00-0.99); Hepatitis B Core Antibody Nonreactive (Nonreactive); Hepatitis B Surface Antigen Negative (Negative); ~HepC Num1 0.08 S/CO (0.00-0.79); ~Hepatitis B Surface Antibody NONREACTIVE (Nonreactive); ~Hepatitis C Antibody Nonreactive (Nonreactive)
--- NOTE | 2020-03-22 08:38 | HO.PM.IMPN ---
Subjective Subjective Date of Service: 03/22/20 Interval History: Seen in f/u for colitis. No n/v or diarrhea and no pain. Tolerated liquid diet. ROS: no fever, no abd pain, no n/v Physical Exam Vital Signs: Vital Signs: Last Vital Signs Temp 96.8 F 03/22/20 07:43 Pulse 60 03/22/20 07:43 Resp 18 03/22/20 07:43 BP 108/61 03/22/20 07:43 Pulse Ox 100 03/22/20 07:43 Body Mass Index 24.7 Appearance: Alert. Oriented X3. patient speaking in a very soft voice, trying to go to sleep, patient looks very uncomfortable, curled up in position Eyes: Pupils equal, round and reactive to light. ENT: Pharynx normal. Neck: Normal inspection. Neck supple. No lymph nodes noted. No crepitus CVS: Normal heart rate and rhythm. Pulses normal. Normal S1 and S2 Respiratory: No respiratory distress. Breath sounds normal. No Wheezing. No rales Abdomen: Soft , tender to palpation especially in the left lower quadrant, no rigidity Rectal: brown stool Skin: Skin warm and dry. Normal skin color. Normal skin turgor. Extremities: No lower extremity edema. No lower extremity edema. No Lacerations. No Rash Neuro: Oriented X 3. No motor deficit. No sensory deficit. Moving all extermities. No slurred speech. Objective Data Current Medications Generic Name Dose Route Start Last Admin Trade Name Freq PRN Reason Stop Dose Admin Atorvastatin Calcium 40 mg 03/21/20 21:00 03/21/20 21:10 Atorvastatin Calcium 40 Mg Tablet PO 40 mg BEDTIME ERIK Administration Bupropion HCl 150 mg 03/22/20 09:00 Bupropion Hcl Xl 150 Mg Tab.Er.24h PO DAILY ERIK Calcium Carbonate/Cholecalciferol 250 mg 03/22/20 09:00 Calcium + Vitamin D 250 Mg Tablet PO DAILY [facility] Enoxaparin Sodium 40 mg 03/21/20 09:30 03/21/20 09:47 Enoxaparin Sodium 40 Mg/0.4 Ml Syringe SUBCUT 40 mg Q24H ERIK Administration Escitalopram Oxalate 20 mg 03/22/20 09:00 Escitalopram Oxalate 20 Mg Tablet PO DAILY [facility] Hydrochlorothiazide 12.5 mg 03/22/20 09:00 Hydrochlorothiazide 12.5 Mg Tablet PO DAILY [facility] Protocol Dextrose/Sodium Chloride 1,000 mls @ 100 mls/hr 03/21/20 13:00 03/22/20 04:32 D51/2ns IVCONT 100 mls/hr .Q10H ERIK Administration Metronidazole 500 mg in 100 mls @ 100 mls/hr 03/21/20 17:00 03/22/20 02:35 Flagyl IV Infused Q8H ERIK Infusion Levofloxacin 500 mg in 100 mls @ 100 mls/hr 03/22/20 06:00 03/22/20 07:56 Levaquin IV Infused Q24H [facility] Infusion Levothyroxine Sodium 75 mcg 03/22/20 06:30 03/22/20 06:25 Levothyroxine Sodium 75 Mcg Tablet PO 75 mcg DAILY@0630 [facility] Administration Melatonin 3 mg 03/21/20 21:00 03/21/20 21:10 Melatonin 3 Mg Tablet PO 3 mg BEDTIME ERIK Administration Metoclopramide HCl 5 mg 03/21/20 14:34 Metoclopramide Hcl 5 Mg Tablet PO TIDAC PRN nausea and vomiting Morphine Sulfate 2 mg 03/21/20 12:51 Morphine Sulfate 2 Mg/Ml Cartridge IVPUSH Q4H PRN Pain, Severe (Pain Scale 7-10) Multivitamins/Minerals 1 tab 03/22/20 09:00 Multivitamin With Minerals Tablet PO DAILY [facility] Omeprazole 20 mg 03/21/20 16:30 03/22/20 06:25 Omeprazole 20 Mg Capsule.Dr PO 20 mg BID@0630,1630 [facility] Administration Ondansetron HCl 4 mg 03/21/20 12:51 Ondansetron Hcl 4 Mg/2 Ml Vial IVPUSH Q8H PRN Nausea and Vomiting Oxybutynin Chloride 10 mg 03/22/20 09:00 Oxybutynin Chloride Er 5 Mg Tab.Er.24 PO DAILY [facility] Sodium Chloride 3 ml 03/21/20 16:00 03/22/20 07:55 0.9 % Sodium Chloride Flush 3 Ml Syringe IVFLUSH 3 ml QSHIFT [facility] Administration Labs CBC & Chem 7: 03/20/20 22:22 03/20/20 22:22 Microbiology Microbiology Results: Microbiology 03/21/20 01:49 Blood - Venous Blood Culture - Preliminary No growth after 24 hours. 03/21/20 01:49 Blood - Venous Blood Culture - Preliminary No growth after 24 hours. Assessment and Plan (1) Colitis: Status: Acute Assessment and Plan: 69 years old female with PMH of HTN, hypothyroidism, depression being readmitted Acute colitis--unresolved from last admisson. DDx: infectious colitis vs ischemic colitis -clinically better than yesterda -continue Levaquin and Flagyl D2 Zofran for nausea PRN -GI recommend EGD/colonoscopy on outpatient basis -Advance diet -repeat CBC today GERD Continue omeprazole Hypothyroidism Continue levothyroxine Hypertension continue hydrochlorothiazide Chronic iron def anemia, outpatient work with EGD/Colonoscopy DVT PPX Lovenox
[2020-03-22 09:48] LABS: Hematocrit 26.3 % (37-47); Hemoglobin 8.9 g/dl (12.0-16.0); Mean Corpuscular HGB Conc 33.8 g/dl (31.0-35.0); Mean Corpuscular Hemoglobin 31.8 pg (27.0-33.0); Mean Corpuscular Volume 93.9 fL (80-98); Mean Platelet Volume 9.6 fL (9.4-12.3); Platelet Count 272 X10*3/uL (160-400); Red Cell Distribution Width 13.7 % (11.0-16.0); White Blood Count 6.9 X10*3/uL (4.8-10.8)
[2020-03-22] MEDS: Escitalopram Oxalate 20 MG TABLET PO (10:05)
[2020-03-22] MEDS: Calcium + Vitamin D 250 MG TABLET PO (10:05)
[2020-03-22] MEDS: buPROPion HCl XL 150 MG TAB.ER.24H PO (10:05)
[2020-03-22] MEDS: Enoxaparin Sodium 40 MG/0.4 ML SYRINGE SUBCUT (10:06)
[2020-03-22] MEDS: hydroCHLOROthiazide 12.5 MG TABLET PO (10:06)
--- NOTE | 2020-03-22 10:19 | MHC.CM.PN ---
PT REPORTS SHE LIVES AT HOME WITH HER S/O AND SHE IS INDEPENDENT WITH ALL CARE AND MOBILITY. PT REPORTS SHE HAS NO DME AND NO HOME OR COMMUNITY SERVICES. PT DOES NOT HAVE A HCP. SHE WAS NOT READY TO COMPLETE ONE THIS MORNING BUT REPORTED SHE WOULD THINK ABOUT IT AND LET THIS ASSESSMENT COORDINATOR KNOW IF SHE DECIDED TO DO ONE. CM ALSO OFFERED A BLANK DOCUMENT TO COMPLETE AT A LATER TIME, PT CONSIDERING IT. PT REPORTS HE PCP IS DR VIANCA GODOY. IMM DELIVERED CURRENT DC PLAN IS HOME WITH NO SERVICES PT WILL SELF ARRANGE TRANSPORT
--- NOTE | 2020-03-22 11:08 | MHC.CM.PN ---
Per multidisciplinary rounds, pt likely to DC tomorrow. DC plan remains home with no services. Pt will arrange transport.
[2020-03-22] MEDS: Atorvastatin Calcium 40 MG TABLET PO (20:31)
[2020-03-22] MEDS: Melatonin 3 MG TABLET PO (20:32)
[2020-03-23] MEDS: metroNIDAZOLE/NS 500 MG/100 ML PIGGYBACK 100 MG IV ×2 (01:00→08:26)
[2020-03-23] MEDS: 0.9 % Sodium Chloride Flush 3 ML SYRINGE IVFLUSH ×2 (01:01→08:35)
[2020-03-23] MEDS: Dextrose 5 % and 0.45 % NaCl 1,000 ML 100 ML IVCONT (02:43)
[2020-03-23 03:31] VITALS: BP 112/57; PULSE 64; RESP 16; TEMP 36.3; O2SAT 98
[2020-03-23] MEDS: Omeprazole 20 MG CAPSULE.DR PO (06:11)
[2020-03-23] MEDS: Levothyroxine Sodium 75 MCG TABLET PO (06:12)
[2020-03-23] MEDS: levoFLOXacin/D5W 500 MG/100 ML PIGGYBACK 100 MG IV (06:18)
[2020-03-23 07:25] VITALS: BP 107/55; PULSE 77; RESP 17; TEMP 36.9; O2SAT 99
[2020-03-23 08:24] LABS: Hematocrit 25.8 % (37-47); Hemoglobin 8.8 g/dl (12.0-16.0); Mean Corpuscular HGB Conc 34.1 g/dl (31.0-35.0); Mean Corpuscular Hemoglobin 31.9 pg (27.0-33.0); Mean Corpuscular Volume 93.5 fL (80-98); Mean Platelet Volume 9.2 fL (9.4-12.3); Platelet Count 264 X10*3/uL (160-400); Red Blood Count 2.76 X10*6/uL (4.20-5.50); Red Cell Distribution Width 13.7 % (11.0-16.0); White Blood Count 7.4 X10*3/uL (4.8-10.8)
[2020-03-23] MEDS: buPROPion HCl XL 150 MG TAB.ER.24H PO (08:25)
[2020-03-23] MEDS: Escitalopram Oxalate 20 MG TABLET PO (08:25)
[2020-03-23] MEDS: Calcium + Vitamin D 250 MG TABLET PO (08:25)
[2020-03-23] MEDS: hydroCHLOROthiazide 12.5 MG TABLET PO (08:26)
[2020-03-23] MEDS: Enoxaparin Sodium 40 MG/0.4 ML SYRINGE SUBCUT (08:29)
--- NOTE | 2020-03-23 09:59 | PM.DS ---
DS: Providers Provider Date of admission: 03/21/20 09:21 Primary care physician: Randolph Thomas MD Consults: 03/21/20 13:22 Consult to Gastroenterology Routine Consulting Provider: Beverly Matthews Reason for consultation: recurrent colitis Has provider been notified: No DS: Diagnosis Discharge Diagnosis (1) Colitis: Status: Acute DS: Medications Discharge Medications Home Medications: Home Medications Medication Instructions Recorded Confirmed atorvastatin 40 mg tablet 40 mg PO DAILY 03/12/20 03/21/20 escitalopram oxalate 20 mg tablet 20 mg PO DAILY 03/12/20 03/21/20 hydrochlorothiazide 12.5 mg capsule 12.5 mg PO QAM 03/12/20 03/21/20 levothyroxine 75 mcg tablet 75 mcg PO DAILY@0630 03/12/20 03/21/20 melatonin 3 mg capsule 3 mg PO BEDTIME 03/12/20 03/21/20 oxybutynin chloride 10 mg 10 mg PO DAILY 03/12/20 03/21/20 tablet,extended release 24 hr bupropion HCl 150 mg PO DAILY 03/16/20 03/21/20 pantoprazole 40 mg PO BID@0630,1630 03/16/20 03/21/20 calcium carbonate-vitamin D3 1 tab PO DAILY 03/21/20 03/21/20 [Calcium 500 + D] aiiginrs-whr-lfda-FA-lutein 1 tab PO DAILY 03/21/20 03/21/20 [Centrum Silver Women] Previous Rx's Medication Instructions Recorded cefuroxime axetil 500 mg PO Q12H #8 tab 03/19/20 metoclopramide HCl 5 mg PO TIDAC PRN #10 tab 03/19/20 metronidazole [Flagyl] 500 mg PO Q8H #12 tab 03/19/20 DS: Summary Hospital Course Hospital Course: HPI from 03/21/20 69 year old female seen in ED March 16 with abdominal pain and diagnosed with colitis and admitted to the hospital until March 19 and treated with IV Ceftriaxone and Flagyl and discharged home with Ceftin and Flagyl and returns to the ED just a day after with same symptps of nausea, vomiting and abddominal pain. She denies fever and sick contact, no travel. CT of abdomen does sow colitis. She's given Flagyl and Levaquin this time. Hospital course: Patient was readmitted and put IV Flagy and Levquin with goood effect and over the last 48 hours has not had pain, nausea, vomitting or diarrhea and has had no blood in stool although she has describe episode or dark stool earlier, occult blood was negative. She was seen by Dr. Matthews with working diagnosis of possible ischemic colitis vs infectious or inflamatory colitis. Dr. Matthews will arrange for EGD/Colonoscopy on outpatient basis. She will complete course of Levaquin and Flagyl. To avoid NSAID and ASA for now. Note that she has normocytic anemia and yet H/H has been stable. Status at Discharge Functional status at discharge: independent ambulation Time Spent with Patient Time attestation: Total time spent providing and/or coordinating discharge services: Discharge coordination time: Greater than 30 minutes Physical Exam Vital Signs: Vital Signs: Last Vital Signs Temp 98.5 F 03/23/20 07:25 Pulse 77 03/23/20 07:25 Resp 17 03/23/20 07:25 BP 107/55 L 03/23/20 07:25 Pulse Ox 99 03/23/20 07:25 Body Mass Index 24.7 Appearance: Alert. Oriented X3. patient speaking in a very soft voice, trying to go to sleep, patient looks very uncomfortable, curled up in position Eyes: Pupils equal, round and reactive to light. ENT: Pharynx normal. Neck: Normal inspection. Neck supple. No lymph nodes noted. No crepitus CVS: Normal heart rate and rhythm. Pulses normal. Normal S1 and S2 Respiratory: No respiratory distress. Breath sounds normal. No Wheezing. No rales Abdomen: Soft , tender to palpation especially in the left lower quadrant, no rigidity Rectal: brown stool Skin: Skin warm and dry. Normal skin color. Normal skin turgor. Extremities: No lower extremity edema. No lower extremity edema. No Lacerations. No Rash Neuro: Oriented X 3. No motor deficit. No sensory deficit. Moving all extermities. No slurred speech. DS: Data Data Completed and Pending Labs on day of discharge: 03/20/20 21:58 CT abdomen pelvis w con Stat 0.9 % Sodium Chloride [Ns] 1,000 ml IVCONT 999 mls/hr 03/20/20 22:04 ondansetron HCL [Zofran] 4 mg IVPUSH ONCE ONE 03/20/20 22:22 Basic Metabolic Panel Stat Complete Blood Count Auto Diff Stat Lactic Acid Stat Lipase Stat Liver Panel Stat 03/20/20 22:43 OBSX1 Stat 03/20/20 23:45 iohexoL 350 MG/ML [Omnipaque 350 MG/ML] 85 ml IV ONCE ONE 03/21/20 01:50 CDiff with Reflex to PCR Stat 03/21/20 02:53 levoFLOXacin/D5W [Levaquin] 500 mg in 100 ml IV NOW metroNIDAZOLE/NS [Flagyl] 500 mg in 100 ml IV ONCE 03/21/20 02:56 0.9 % Sodium Chloride [Ns] 1,000 ml IVCONT 999 mls/hr 03/21/20 04:10 COVID-19 ID NOW ([place]) Stat 03/21/20 06:50 ondansetron HCL [Zofran] 4 mg IVPUSH ONCE ONE 03/21/20 09:19 Transfer Order Routine 03/21/20 09:30 Enoxaparin Sodium [Lovenox] 40 mg SUBCUT Q24H 03/21/20 Breakfast Full Liquid Diet 03/21/20 17:00 metroNIDAZOLE/NS [Flagyl] 500 mg in 100 ml IV Q8H 03/22/20 06:00 levoFLOXacin/D5W [Levaquin] 500 mg in 100 ml IV Q24H 03/22/20 06:42 C Reactive Protein Routine Hepatitis B,C Profile Routine 03/22/20 09:32 Complete Blood Count no Diff Routine 03/23/20 08:14 Type and Screen Routine Complete Blood Count no Diff Routine Laboratory Last Values WBC 7.4 X10*3/uL (4.8-10.8) 03/23/20 08:14 RBC 2.76 X10*6/uL (4.20-5.50) L 03/23/20 08:14 Hgb 8.8 g/dl (12.0-16.0) L 03/23/20 08:14 Hct 25.8 % (37-47) L 03/23/20 08:14 MCV 93.5 fL (80-98) 03/23/20 08:14 MCH 31.9 pg (27.0-33.0) 03/23/20 08:14 MCHC 34.1 g/dl (31.0-35.0) 03/23/20 08:14 RDW 13.7 % (11.0-16.0) 03/23/20 08:14 Plt Count 264 X10*3/uL (160-400) 03/23/20 08:14 MPV 9.2 fL (9.4-12.3) L 03/23/20 08:14 Immature Gran % (Auto) 0.3 % (0.0-0.4) 03/20/20 22:22 Neut % (Auto) 87.2 % (45-73) H 03/20/20 22:22 Lymph % (Auto) 8.2 % (20-40) L 03/20/20 22:22 [place] % (Auto) 4.1 % (2-11) 03/20/20 22:22 Eos % (Auto) 0.0 % (0-4) 03/20/20 22:22 Baso % (Auto) 0.2 % (0-2) 03/20/20 22:22 Lymph # (Auto) 0.9 X10*3/uL (1.2-4.9) L 03/20/20 22:22 [place] # (Auto) 0.5 X10*3/uL (0.1-1.2) 03/20/20 22:22 Eos # (Auto) 0.0 X10*3/uL (0.0-0.4) 03/20/20 22:22 Baso # (Auto) 0.0 X10*3/uL (0.0-0.2) 03/20/20 22:22 Abs Immat Gran (auto) 0.03 X10*3/uL (0.00-0.03) 03/20/20 22:22 Absolute Neuts (auto) 9.5 X10*3/uL (2.0-8.3) H 03/20/20 22:22 Absolute Nucleated RBC 0.000 X10*3/uL (0.0-0.012) 03/23/20 08:14 Nucleated RBC % (auto) 0.0 /100WBC (0.0-0.2) 03/23/20 08:14 Sodium 137 mmol/L (135-145) 03/20/20 22:22 Potassium 3.4 mmol/l (3.3-5.1) 03/20/20 22:22 Chloride 98 mmol/L (96-108) 03/20/20 22:22 Carbon Dioxide 23 mmol/L (22-29) 03/20/20 22:22 Anion Gap 19 (12-20) 03/20/20 22:22 BUN 13 mg/dL (9-16) 03/20/20 22:22 Creatinine 0.77 mg/dL (0.5-1.4) 03/20/20 22:22 Estim Creat Clear Calc 51.7 03/20/20 22:22 Estimated GFR > 60 03/20/20 22:22 Random Glucose 103 mg/dL (60-115) D 03/20/20 22:22 Lactic Acid 1.2 mmol/L (0.5-2.0) 03/20/20 22:22 Calcium 8.0 mg/dL (8.4-10.2) L 03/20/20 22:22 Total Bilirubin 1.0 mg/dL (0.0-1.0) 03/20/20 22:22 Direct Bilirubin 0.4 mg/dL (0.0-0.5) 03/20/20 22:22 AST 75 U/L (5-31) H 03/20/20 22:22 ALT 49 U/L (0-31) H 03/20/20 22:22 Alkaline Phosphatase 77 U/L (39-117) D 03/20/20 22:22 C-Reactive Protein 0.86 mg/dL (< or = 0.50) H 03/22/20 06:42 Total Protein 6.3 g/dL (6.5-8.0) L 03/20/20 22:22 Albumin 3.7 g/dL (3.5-5.0) 03/20/20 22:22 Lipase 12 U/L (8-78) 03/20/20 22:22 Urine Color STRAW 03/21/20 01:49 Urine Appearance CLEAR 03/21/20 01:49 Urine pH 7.0 (5.0-8.0) 03/21/20 01:49 Ur Specific [place] 1.010 (1.005-1.025) 03/21/20 01:49 Urine Protein NEG MG/DL (NEG-TRACE) 03/21/20 01:49 Urine Glucose (UA) NEG MG/DL (NEG) 03/21/20 01:49 Urine Ketones 15 MG/DL (NEG) 03/21/20 01:49 Urine Blood TRACE (NEG) 03/21/20 01:49 Urine Nitrite NEG (NEG) 03/21/20 01:49 Ur Leukocyte Esterase NEG (NEG) 03/21/20 01:49 Urine RBC 0-2 /HPF (0) 03/21/20 01:49 Urine WBC 0 /HPF (0-4) 03/21/20 01:49 Ur Squamous Epith Cells 1+ /LPF 03/21/20 01:49 Urine Bacteria NONE /LPF 03/21/20 01:49 Stool Occult Blood NEG (NEG) 03/20/20 22:43 C. difficile Toxin A&B Negative (Negative) 03/21/20 01:50 C. difficile Antigen Negative (Negative) 03/21/20 01:50 C. difficile Interpret SEE NOTE 03/21/20 01:50 COVID-19 ([facility]) Negative (Negative) 03/21/20 04:10 COVID-19 Clin Com See Note 03/21/20 04:10 Hep Bs Antigen Negative (Negative) 03/22/20 06:42 Hep Bs Antibody NONREACTIVE (Nonreactive) 03/22/20 06:42 Hep B Core Total Ab Nonreactive (Nonreactive) 03/22/20 06:42 Hepatitis C Ab (EIA) Nonreactive (Nonreactive) 03/22/20 06:42 Blood Type A Positive 03/23/20 08:14 Antibody Screen NEGATIVE 03/23/20 08:14 Preliminary micro results at discharge 03/21/20 01:49 Blood Culture - Preliminary Blood - Venous No growth after 48 hours. 03/21/20 01:49 Blood Culture - Preliminary Blood - Venous No growth after 48 hours. Discharge Plan Discharge Anticipated Discharge Date/Time: 03/23/20 10:06 Patient Disposition: Home, Self-Care Referrals: Randolph Thomas MD [Primary Care Provider] - 1 Week (Please call and schedule a follow up appointment with Dr. Thomas for 1 week. Office was closed when I called. Hours: M,Wed, 9:30-4:30 Wed and Wednesday 9:30-2 ) Beverly Matthews MD [Physician] - 1 Week (Call on Wednesday for an appointment and tell the office Dr. Matthews will like to see you in follow up in 7 to 10 days) Discharge Medications: New levofloxacin 500 mg tablet 500 mg PO DAILY 3 Days Qty: 3 RF: 0 Continued bupropion HCl 150 mg tablet sustained-release 12 hr 150 mg PO DAILY RF: 0 pantoprazole 40 mg tablet,delayed release (DR/EC) 40 mg PO BID@0630,1630 RF: 0 metoclopramide HCl 5 mg Tablet 5 mg PO TIDAC PRN (Reason: nausea and vomiting) Qty: 10 RF: 0 metronidazole [Flagyl] 500 mg tablet 500 mg PO Q8H Qty: 12 RF: 0 calcium carbonate-vitamin D3 [Calcium 500 + D] 500 mg(1,250mg) -200 unit Tablet 1 tab PO DAILY RF: 0 Centrum Silver Women 8 mg iron-400 mcg-300 mcg Tablet 1 tab PO DAILY RF: 0 escitalopram oxalate 20 mg tablet 20 mg PO DAILY RF: 0 atorvastatin 40 mg tablet 40 mg PO DAILY RF: 0 melatonin 3 mg capsule 3 mg PO BEDTIME RF: 0 levothyroxine 75 mcg tablet 75 mcg PO DAILY@0630 RF: 0 hydrochlorothiazide 12.5 mg capsule 12.5 mg PO QAM RF: 0 oxybutynin chloride 10 mg tablet extended release 24hr 10 mg PO DAILY RF: 0 Discontinued cefuroxime axetil 500 mg tablet 500 mg PO Q12H Qty: 8 RF: 0 Discharge Orders: Discharge Order (Routine); Ordered 03/23/20 Ordered By: Nikita Leyva Diet: advance to usual diet Activity on Discharge: As tolerated Discharge Date/Time: 03/23/20 16:20 Visit Report Forms: Patient Portal Discharge page Care Plan Goals: To figure out cause of anemia and colitis Health Concerns: colitis and anemia Plan of Treatment: Take Levaquin and Flagyl as recommended. Follow up with Dr. Matthews to have EGD and colonoscopy done. Avoid Motrin, ASpirin, if you notice blood in the stool,call your doctor or 911
--- NOTE | 2020-03-23 10:39 | MHC.CM.PN ---
PATIENT IS DISCHARGED HOME-SELF CARE FAMILY TO TRANSPORT.
[2020-03-23 12:00] VITALS: BP 138/66; PULSE 76; RESP 18; TEMP 36.3; O2SAT 100
== END 2020-03-23 16:20 | disposition home or self-care (01) | DRG 392 ==
LOC: HO.ED 03-21 03:08 → HO.S3 03-21 11:43
PROVIDERS: Internal Medicine Gastroenterology; Admitting Provider Internal Medicine; Emergency Provider Emergency Medicine; PCP Family Medicine; Visit Provider Internal Medicine
DX: K52.9 Noninfective gastroenteritis and colitis, unspecified (principal); F41.9 Anxiety disorder, unspecified; F32.9 Major depressive disorder, single episode, unspecified; Z20.828 Contact with and (suspected) exposure to other viral communicable diseases; D50.9 Iron deficiency anemia, unspecified; K21.9 Gastro-esophageal reflux disease without esophagitis; E03.9 Hypothyroidism, unspecified; I10 Essential (primary) hypertension; Z88.0 Allergy status to penicillin; Z79.890 Hormone replacement therapy; Z79.899 Other long term (current) drug therapy
CPT/HCPCS: 36415; 74177; 80048; 80076; 81001; 82272; 83605; 83690; 85025; 85027; 86140; 86704; 86706; 86803; 86850; 86900; 86901; 87040; 87324; 87340; 87449; 87635; 96361; 96365; 96375; 99284; 99285; J1650; J1956; J2405; Q9967

== ENCOUNTER 2020-03-26 07:55 | Outpatient (REF) | payer MEDICARE, MEDICAID, SELFPAY ==
[2020-03-26 10:32] LABS: Basophils Absolute Auto 0.1 X10*3/uL (0.0-0.2); Basophils Percent Auto 0.7 % (0-2); Eosinophils Absolute Auto 0.1 X10*3/uL (0.0-0.4); Eosinophils Percent Auto 0.8 % (0-4); Hematocrit 30.3 % (37-47); Imm Gran Abs Auto 0.02 X10*3/uL (0.00-0.03); Imm Gran Pct Auto 0.3 % (0.0-0.4); Immature Retic Fraction 13.8 % (3.0-15.9); Lymphocytes Absolute Auto 1.7 X10*3/uL (1.2-4.9); Lymphocytes Percent Auto 23.2 % (20-40); MANUAL DIFF FLAG NO; Mean Corpuscular Hemoglobin 31.3 pg (27.0-33.0); Mean Platelet Volume 9.8 fL (9.4-12.3); Monocytes Absolute Auto 0.7 X10*3/uL (0.1-1.2); Monocytes Percent Auto 9.9 % (2-11); Neutrophils Absolute Auto 4.7 X10*3/uL (2.0-8.3); Neutrophils Percent Auto 65.1 % (45-73); Platelet Count 370 X10*3/uL (160-400); Red Blood Count 3.19 X10*6/uL (4.20-5.50); Red Cell Distribution Width 14.2 % (11.0-16.0); Retic HGB Equivalent 33.7 pg (30.0-35.0); Reticulocyte Percent 1.9 % (0.5-1.8); Reticulocytes Absolute 0.059 X10*6/uL (0.026-0.095); White Blood Count 7.2 X10*3/uL (4.8-10.8)
[2020-03-26 11:15] LABS: Iron 82 mcg/dL (30-160)
[2020-03-26 11:32] LABS: Percent Iron Saturation 33 % (15-50); Total Iron Binding Capacity 248 mcg/dL (228-428); Unsaturated Iron Binding 166 ug/dL
[2020-03-26 11:36] LABS: Free T4 (Free Thyroxine) 1.13 ng/dL (0.71-1.85); Thyroid Stimulating Hormone 5.25 uIU/mL (0.32-4.0)
[2020-03-26 12:19] LABS: Folate 19.9 ng/mL (> or = 4.0); Vitamin B12 639 pg/mL (200-900)
== END 2020-03-26 07:56 | disposition home or self-care (01) ==
LOC: HO.10HDL 07:55
PROVIDERS: Visit Provider Family Medicine
DX: E03.9 Hypothyroidism, unspecified (principal); D64.9 Anemia, unspecified
CPT/HCPCS: 36415; 82607; 82746; 83540; 84439; 84443; 85025; 85045; 86880

== ENCOUNTER → 2020-04-01 10:27 | Outpatient (BNVA) | payer MEDICARE, OTHER, SELFPAY | PROVIDERS: Visit Provider Internal Medicine Gastroenterology | DX: K52.9 Noninfective gastroenteritis and colitis, unspecified (principal); R12 Heartburn; K59.00 Constipation, unspecified; D64.9 Anemia, unspecified; Z79.899 Other long term (current) drug therapy | CPT/HCPCS: Q3014 ==

== ENCOUNTER 2020-04-19 09:57 | Day surgery (SDC) | payer MEDICARE, MEDICAID, SELFPAY ==
--- NOTE | 2020-04-17 14:55 | HO.ANESPROP2 ---
Documented by User: Anais Hanley 04/17/20 14:59 HPI - Anesthesia Eval Consult details Narrative: 69yo F for Upper Endoscopy and Colonoscopy 03/2020 [facility] [place] admit with colitis PMFSH Past Medical History Medical History Anemia Anxiety Constipation Depression Depression Fatigue GERD (gastroesophageal reflux disease) Hypothyroidism Restless leg syndrome Family History Family History Father Cancer Mother Breast cancer Surgical History Surgical History History of esophagogastroduodenoscopy (EGD) History of tonsillectomy Hx of appendectomy Hx of breast biopsy Hx of cataract surgery Hx of colonoscopy (~2013) Social History Social History Household Members: Significant Other Housing: Apartment Alcohol intake: never Smoking Status: Former smoker Second Hand Smoke Exposure: No Use of substances other than those prescribed or required for medical reasons: No Advance Directives: No Advance Directives Information Provided: Yes Recently lost weight without trying: No service: No Current occupational status: unemployed and retired 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 Meds Allergies Allergy/AdvReac Type Severity Reaction Status Date / Time Penicillins [PENICILLINS] Allergy Severe SWELLING,RA Verified 04/01/20 10:30 Home Medications Medication Instructions Recorded Confirmed Type atorvastatin 40 mg tablet 40 mg PO DAILY 03/12/20 04/16/20 History escitalopram oxalate 20 mg tablet 20 mg PO DAILY 03/12/20 04/16/20 History hydrochlorothiazide 12.5 mg capsule 12.5 mg PO QAM 03/12/20 04/16/20 History levothyroxine 75 mcg tablet 75 mcg PO DAILY@0630 03/12/20 04/16/20 History melatonin 3 mg capsule 3 mg PO BEDTIME 03/12/20 04/16/20 History oxybutynin chloride 10 mg 10 mg PO DAILY 03/12/20 04/16/20 History tablet,extended release 24 hr bupropion HCl 150 mg PO DAILY 03/16/20 04/16/20 History pantoprazole 40 mg PO BID@0630,1630 03/16/20 04/16/20 History Centrum Silver Women 1 tab PO DAILY 03/21/20 04/16/20 History calcium carbonate-vitamin D3 1 tab PO DAILY 03/21/20 04/16/20 History [Calcium 500 + D] Exam Exam Date and Time: April 17, 2020 1455 Height,Weight and Vital Signs: Height 4 ft 10 in Pertinent Lab Results Pertinent Lab Results: Laboratory Tests 03/20/20 03/26/20 22:22 08:10 WBC 7.2 Hgb 10.0 L Hct 30.3 L Plt Count 370 D Sodium 137 Potassium 3.4 Chloride 98 Carbon Dioxide 23 BUN 13 Creatinine 0.77 Assessment and Plan Assessment Anesthesia Assessment: Chart Reviewed Documented by User: Allie Jennings 04/19/20 10:50 PMFSH Past Medical History Medical History Anemia Anxiety Constipation Depression Depression Fatigue GERD (gastroesophageal reflux disease) Hypothyroidism Restless leg syndrome Family History Family History Father Cancer Mother Breast cancer Family history of problems with anesthesia: No Surgical History Surgical History History of esophagogastroduodenoscopy (EGD) History of tonsillectomy Hx of appendectomy Hx of breast biopsy Hx of cataract surgery Hx of colonoscopy (~2013) History of Problems with Anesthesia: No Social History Social History Household Members: Significant Other Housing: Apartment Alcohol intake: never Smoking Status: Former smoker Second Hand Smoke Exposure: No Use of substances other than those prescribed or required for medical reasons: No Advance Directives: No Advance Directives Information Provided: Yes Recently lost weight without trying: No service: No Current occupational status: unemployed and retired 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 Meds Allergies Allergy/AdvReac Type Severity Reaction Status Date / Time Penicillins [PENICILLINS] Allergy Severe SWELLING,RA Verified 04/01/20 10:30 Home Medications Medication Instructions Recorded Confirmed Type atorvastatin 40 mg tablet 40 mg PO DAILY 03/12/20 04/16/20 History escitalopram oxalate 20 mg tablet 20 mg PO DAILY 03/12/20 04/16/20 History hydrochlorothiazide 12.5 mg capsule 12.5 mg PO QAM 03/12/20 04/16/20 History levothyroxine 75 mcg tablet 75 mcg PO DAILY@0630 03/12/20 04/16/20 History melatonin 3 mg capsule 3 mg PO BEDTIME 03/12/20 04/16/20 History oxybutynin chloride 10 mg 10 mg PO DAILY 03/12/20 04/16/20 History tablet,extended release 24 hr bupropion HCl 150 mg PO DAILY 03/16/20 04/16/20 History pantoprazole 40 mg PO BID@0630,1630 03/16/20 04/16/20 History Centrum Silver Women 1 tab PO DAILY 03/21/20 04/16/20 History calcium carbonate-vitamin D3 1 tab PO DAILY 03/21/20 04/16/20 History [Calcium 500 + D] Exam Height,Weight and Vital Signs: Vital Signs Temp Pulse Resp BP Pulse Ox 04/19/20 10:21 97.6 F 76 18 137/63 99 Airway Mallampati Class: I TM Dist: >3cm Neck ROM: Full Loose/Missing/Broken Teeth: Yes (Top right) Heart: RRR Lungs: CTAB Assessment and Plan Assessment Anesthesia Assessment: Anesthesia Plan Discussed and Chart Reviewed Final Anesthetic Review NPO: Yes ASA Class: II Final Preanesthetic Review: No Changes in Pt Med Stat, Meds/Allgs Chart Reviewed, Consent Obtained/Reviewed and Anes Risks/Benef Reviewed Patient Risk: Low Procedure Risk: Low Anesthetic Plan Anesthetic Plan: MAC: Disposition: Standard PACU
--- NOTE | 2020-04-19 10:08 | W.PM.OPN ---
Operative Note Operative Note Date of Service: 04/19/20 Narrative: Pre-op diagnosis: FLOR, recent episode of diverticulitis Post-op diagnosis: other (Esophageal ulcer, hiatal hernia, gastritis, multiple gastric polyps, diverticulosis, hemorrhoids.) Procedure: FLEXIBLE TRANSORAL UPPER GASTROINTESTINAL ENDOSCOPY WITH BIOPSIES AND COLONOSCOPY TILL CECUM WITH BIOPSIES UPPER ENDOSCOPY Consent: Indications for the procedure and potential complications of bleeding, perforation, reaction to medications and missed diagnosis were discussed with the patient and informed consent was obtained. Instrument: Olympus GIF H 190 mid size upper endoscope Monitoring: Vital signs and clinical assessment, continuous EKG monitoring, Pulse oximetry, Carbon Dioxide monitoring and blood pressure monitoring were done throughout the procedure. Procedure: The patient was placed in the left lateral decubitis position and pre-procedure medications were administered and a bite block was placed. The endoscope was inserted into the mouth and advanced under direct vision to the third part of duodenum. A careful inspection was made as the upper endoscope was withdrawn including a retroflexed examination of the proximal stomach; Findings and interventions are described below. Findings: Larynx: Normal Esophagus: GE junction at 30 cms, hiatal hernia 30 - 34 cms. 1 cms ulcer at GE junction with edematous folds - biopsied. Stomach: Multiple 1 -2 cms benign appearing gastric polyps. Mild gastric erythema with a few antral erosion. Biopsies were obtained. Grade 2 flap valve on retroflexed examination of the cardia. Duodenum: Normal bulb and descending duodenum Intervention: Biopsies as noted above COLONOSCOPY PROCEDURE NOTE Consent: Indications for the procedure and potential complications of bleeding, perforation, reaction to medications and missed diagnosis were discussed with the patient and informed consent was obtained. Instrument: Olympus PCF H 190 L variable stiffness pediatric colonoscope Monitoring: Vital signs and clinical assessment, intermittent blood pressure monitoring, continuous EKG monitoring, Pulse oximetry and Carbon Dioxide monitoring were done throughout the procedure. Colon withdrawl time was 24 minutes. Procedure: The patient was placed in the left lateral decubitis position and pre-procedure medications were administered. After a digital rectal examination of the ano-rectum, the video colonoscope was inserted into the rectum and advanced through the colon to the cecum. The colonoscope was slowly withdrawn in a retrograde panoramic fashion and the colon mucosa was carefully examined including a retroflexed view of the rectum. Findings and interventions are described below. Procedure Difficulty: LLQ pressure was applied to intubate the cecum Findings: Terminal Ileum: Not evaluated Terminal Ileum: Not evaluated Cecum: Normal Ascending Colon: Normal Transverse Colon: Normal Descending Colon: Moderate diverticulosis Sigmoid Colon: Moderate to severe diverticulosis with luminal narrowing Rectum: Normal Ano-rectum: Moderate internal hemorrhoids Colon preparation: Good after copious irrigation Impression and Post Procedure Diagnosis: Endoscopy Findings: ESOPHAGUS: GE junction at 30 cms, hiatal hernia 30 - 34 cms. 1 cms ulcer at GE junction with edematous folds - biopsied. STOMACH: Multiple 1 -2 cms benign appearing gastric polyps. Mild gastric erythema with a few antral erosion. Biopsies were obtained. Grade 2 flap valve on retroflexed examination of the cardia. Colonoscopy Findings: No polyps were detected. Random biopsies were obtained from right and left colon. Moderate diverticulosis seen in the left colon Moderate hemorrhoids on retroflexed exam. Plan: Await pathology results Patient has an appointment on 05/23/19 in the GI Clinic with Beverly Matthews M.D.. Repeat Colonoscopy in 10 years if colon biopsies are normal. 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 Gastric antrum, B. Gastric polyps, C. Esophageal ulcer, D. Rt colon, E. Lt colon) Condition: stable Disposition: PACU
--- NOTE | 2020-04-19 10:08 | MHC.SHP ---
Pre-Procedural Eval Section A The patient is an INPATIENT: No Changes since office visit: Yes New Medical Problems and Yes Patient answered all questions; No Cold of Flu in the past 2 weeks The History & Physical has been completed within 30 days and I have reviewed it.: No Section B Chief Complaint: anemia Details of Present Illness: A 50-year-old male referred for index screening colonoscopy. He is very anxious to have a colonoscopy he wants to make sure that he is healthy. Taking Plavix for greater than a year was initially prescribed per his report, back in [place]. Bypass [id number]@ [facility]-seen last week. Currently taking oxycodone for leg pain. He has misha good appetite- Normal bowel pattern- on occassion a little rectal bleeding if he strains- No fever, chills, abdominal pain, or weight loss. Present Medications: see Short Stay Collaborative assessment Allergies: Allergies Allergy/AdvReac Type Severity Reaction Status Date / Time Penicillins [PENICILLINS] Allergy Severe SWELLING,RA Verified 04/01/20 10:30 Review of Systems Sugical H&P ROS: Negative: Constitution, Cardiovascular, Respiratory and Gastrointestinal Exam Surgical H&P Exam: Normal: Heart, Normal: Lungs and Normal: Extremities Plan Diagnosis/Plan: Unchanged Patient has been examined and remains a candidate for the planned procedure
[2020-04-19 10:21] VITALS: BP 137/63; PULSE 76; RESP 18; TEMP 36.4; O2SAT 99
[2020-04-19] MEDS: Lactated Ringers 1,000 ML 100 ML IVCONT (10:44)
[2020-04-19 10:53] VITALS: BMI 23.3
[2020-04-19 11:55] VITALS: BP 105/67; PULSE 80; RESP 16; TEMP 36.7; O2SAT 100
[2020-04-19 12:10] VITALS: BP 137/77; PULSE 84; RESP 16; O2SAT 97
[2020-04-19 12:25] VITALS: BP 142/64; PULSE 85; RESP 16; TEMP 36.1; O2SAT 97
== END 2020-04-19 13:09 | disposition home or self-care (01) ==
PROVIDERS: PCP Family Medicine; Visit Provider Internal Medicine Gastroenterology
PROC: (CPT 45380; principal; 2020-04-19 11:50)
DX: D50.9 Iron deficiency anemia, unspecified (principal); K29.70 Gastritis, unspecified, without bleeding; K31.7 Polyp of stomach and duodenum; K20.90 Esophagitis, unspecified without bleeding; K22.10 Ulcer of esophagus without bleeding; K44.9 Diaphragmatic hernia without obstruction or gangrene; K57.30 Diverticulosis of large intestine without perforation or abscess without bleeding; K64.8 Other hemorrhoids; Z88.0 Allergy status to penicillin
CPT/HCPCS: 45380; 43239; 88305; 88342

== ENCOUNTER → 2020-05-14 08:35 | Outpatient (BNVA) | payer MEDICARE, SELFPAY | PROVIDERS: PCP Family Medicine; Visit Provider Nurse Practitioner Family | DX: Z13.89 Encounter for screening for other disorder (principal) | CPT/HCPCS: Q3014 ==

== ENCOUNTER → 2020-05-23 09:06 | Outpatient (BNVA) | payer MEDICARE, MEDICAID, SELFPAY | PROVIDERS: PCP Family Medicine; Visit Provider Internal Medicine Gastroenterology | DX: K57.30 Diverticulosis of large intestine without perforation or abscess without bleeding (principal); K31.7 Polyp of stomach and duodenum; K22.10 Ulcer of esophagus without bleeding; K44.9 Diaphragmatic hernia without obstruction or gangrene; K59.00 Constipation, unspecified; D64.9 Anemia, unspecified; Z12.11 Encounter for screening for malignant neoplasm of colon | CPT/HCPCS: Q3014 ==

== ENCOUNTER → 2020-08-13 09:32 | Outpatient (BNVA) | payer MEDICARE, MEDICAID, SELFPAY | PROVIDERS: PCP Family Medicine; Visit Provider Nurse Practitioner Family | DX: G47.61 Periodic limb movement disorder (principal); G25.81 Restless legs syndrome; D64.9 Anemia, unspecified; K59.00 Constipation, unspecified; K21.9 Gastro-esophageal reflux disease without esophagitis; E03.9 Hypothyroidism, unspecified; F41.8 Other specified anxiety disorders; Z88.0 Allergy status to penicillin; Z79.899 Other long term (current) drug therapy | CPT/HCPCS: Q3014 ==

== ENCOUNTER 2020-09-02 10:52 | Day surgery (SDC) | payer MEDICARE, MEDICAID, SELFPAY ==
[2020-09-02 11:36] VITALS: BP 104/56; PULSE 71; RESP 18; TEMP 36.9; O2SAT 98
[2020-09-02] MEDS: Lactated Ringers 1,000 ML 50 ML IV (11:36)
--- NOTE | 2020-09-02 11:49 | HO.ANESPROP2 ---
[facility] Active Problems Active Problems: All Active Problems (Updated 08/02/20 @ 15:36 by Rebeka Talley) Periodic limb movements of sleep (Acute) Colitis (Acute) Hypertension (Acute) Hypercholesterolemia (Acute) Dyspepsia (Acute) Benign esophageal stricture (Acute) Asthma (Acute) Elevated LFTs (Acute) Heartburn (Acute) Hiatal hernia without gangrene or obstruction (Acute) Esophageal ulcer (Acute) Multiple gastric polyps (Acute) Diverticulosis of colon (Acute) Colon cancer screening (Acute) Restless leg syndrome (Acute) Anemia (Acute) Constipation (Acute) Past Medical History Medical History Anemia Anxiety Asthma Constipation Depression Fatigue GERD (gastroesophageal reflux disease) Hiatal hernia Hypothyroidism Restless leg syndrome Family History Family History Father Cancer Mother Breast cancer Surgical History Surgical History History of esophagogastroduodenoscopy (EGD) History of tonsillectomy Hx of appendectomy Hx of breast biopsy Hx of cataract surgery Hx of colonoscopy Social History Social History Household Members: Significant Other Housing: Apartment Alcohol intake: never Smoking Status: Never smoker Second Hand Smoke Exposure: No Have you been hit, kicked, punched, or otherwise hurt by someone within the past year? 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 Meds Allergies Allergy/AdvReac Type Severity Reaction Status Date / Time Penicillins [PENICILLINS] Allergy Severe SWELLING,RA Verified 08/02/20 15:44 Home Medications Medication Instructions Recorded Confirmed Last Taken Type atorvastatin 40 mg tablet 40 mg PO DAILY 03/12/20 08/13/20 03/14/20 History escitalopram oxalate 20 mg tablet 20 mg PO DAILY 03/12/20 08/13/20 04/19/20 08:00 History hydrochlorothiazide 12.5 mg capsule 12.5 mg PO QAM 03/12/20 08/13/20 03/14/20 History levothyroxine 75 mcg tablet 75 mcg PO DAILY@0630 11/07/2708/13/20 04/19/20 08:00 History melatonin 3 mg capsule 3 mg PO BEDTIME 03/12/20 08/13/20 03/14/20 History bupropion HCl 150 mg PO DAILY 03/16/20 08/13/20 04/19/20 08:00 History pantoprazole 40 mg PO BID@0630,1630 03/16/20 08/13/20 03/14/20 History Centrum Silver Women 1 tab PO DAILY 03/21/20 08/13/20 Unknown History calcium carbonate-vitamin D3 1 tab PO DAILY 03/21/20 08/13/20 Unknown History [Calcium 500 + D] oxybutynin chloride 10 mg See Rx Instructions PO DAILY 05/14/20 08/13/20 Unknown History tablet,extended release 24 hr magnesium oxide,aspartate,citr mg PO 08/13/20 08/13/20 Unknown History Exam Exam Date and Time: September 02, 2020 1149 Height,Weight and Vital Signs: Last Vital Signs Temp 98.5 F 09/02/20 11:36 Pulse 71 09/02/20 11:36 Resp 18 09/02/20 11:36 BP 104/56 L 09/02/20 11:36 Pulse Ox 98 09/02/20 11:36 Airway Mallampati Class: II TM Dist: >3cm Neck ROM: Full Heart: RRR Lungs: CTA Assessment and Plan Assessment Anesthesia Assessment: Anesthesia Plan Discussed and Chart Reviewed Final Anesthetic Review NPO: Yes ASA Class: II Final Preanesthetic Review: Meds/Allgs Chart Reviewed, Consent Obtained/Reviewed and Anes Risks/Benef Reviewed Patient Risk: Low Procedure Risk: Intermediate Anesthetic Plan Anesthetic Plan: MAC: Disposition: Standard PACU
--- NOTE | 2020-09-02 11:55 | P.OP_ITS ---
Operative Note Operative Note Date of Service: 09/02/20 Narrative: Pre-op diagnosis: GERD, FU of esophageal ulcer Post-op diagnosis: other (Hiatal hernia, GERD, lower esophageal ulcer, multiple gastric polyps) Procedure: FLEXIBLE TRANSORAL UPPER GASTROINTESTINAL ENDOSCOPY WITH BIOPSIES AND SNARE POLYPECTOMY OF GASTRIC POLYPS Consent: Indications for the procedure and potential complications of bleeding, perforation, reaction to medications and missed diagnosis were discussed with the patient and informed consent was obtained. Instrument: Olympus GIF H 190 mid size upper endoscope Monitoring: Vital signs and clinical assessment, continuous EKG monitoring, Pulse oximetry, Carbon Dioxide monitoring and blood pressure monitoring were done throughout the procedure. Procedure: The patient was placed in the left lateral decubitis position and pre-procedure medications were administered and a bite block was placed. The endoscope was inserted into the mouth and advanced under direct vision to the third part of duodenum. A careful inspection was made as the upper endoscope was withdrawn including a retroflexed examination of the proximal stomach; Findings and interventions are described below. Findings: Larynx: Normal Esophagus: GE junction at 30 cms, hiatal hernia 30 - 34 cms. 1 cms ulcer at GE junction with edematous folds - biopsied. Persistent 1 cm chronic appearing ulcer just proximal to GE junction -multiple biopsies were obtained. Stomach: Multiple 1 -2 cms benign appearing gastric polyps. Two of the larger polyps with slow oozing - removed with a hot snare. Grade 3 flap valve on retroflexed examination of the cardia Duodenum: Normal bulb and descending duodenum Intervention: Biopsies as noted above Impression and Post Procedure Diagnosis: Endoscopy Findings: ESOPHAGUS: GE junction at 30 cms, hiatal hernia 30 - 34 cms. 1 cms ulcer at GE junction with edematous folds - biopsied. Persistent 1 cm chronic appearing ulcer just proximal to GE junction -multiple biopsies were obtained. STOMACH: Multiple 1 -2 cms benign appearing gastric polyps. Two of the larger polyps with slow oozing - removed with a hot snare. Grade 3 flap valve on retroflexed examination of the cardia Plan: Await pathology results Patient has an appointment on 10/10/20 in the GI Clinic with Beverly Matthews M.D.-. Above findings were reviewed with the patient and [GERD] and [Gastritis] handouts were given in the discharge area Surgeon: Beverly Matthews MD Anesthesia: MAC (Dr Ramirez) Turret Lathe Operator: Hoda Mcdaniels Estimated blood loss (mL): 0 Pathology: other (A: DISTAL ESOPHAGUS ULCER B: GASTRIC POLYPS) Condition: stable Disposition: PACU
--- NOTE | 2020-09-02 11:55 | MHC.SHP ---
Pre-Procedural Eval Section A The patient is an INPATIENT: No The History & Physical has been completed within 30 days and I have reviewed it.: No Section B Chief Complaint: Ulcer of esophagus without bleeding Details of Present Illness: Has heartburn once in a while and denies dysphagia. Patient denies symptoms of nausea, vomiting, change in appetite or weight. Takes Miralax prn if no BM x 4-5 days Relevant Family History (Specify if Yes): Yes Relevant Social History: Tobacco Use (past smoker) Present Medications: see Short Stay Collaborative assessment Medical History: Significant History (Anemia Anxiety Constipation Depression Depression Fatigue GERD (gastroesophageal reflux disease) Hypothyroidism Restless leg syndrome) History of Previous Operations: Relevant previous surgery/procedure and date(s) (History of esophagogastroduodenoscopy (EGD) History of tonsillectomy Hx of appendectomy Hx of breast biopsy Hx of cataract surgery Hx of colonoscopy (~2013)) Allergies: Allergies Allergy/AdvReac Type Severity Reaction Status Date / Time Penicillins [PENICILLINS] Allergy Severe SWELLING,RA Verified 08/02/20 15:44 Review of Systems Sugical H&P ROS: Negative: Constitution, Cardiovascular, Respiratory and Gastrointestinal Exam Surgical H&P Exam: Normal: Heart, Normal: Lungs, Normal: Extremities and Normal: Abdomen Plan Diagnosis/Plan: Unchanged I have reviewed the history and physical and performed a pertinent physical examination on my patient. No changes have occurred unless specified.
[2020-09-02 11:59] VITALS: BMI 21.6
[2020-09-02 12:39] VITALS: BP 100/45; PULSE 72; RESP 16; TEMP 36.1; O2SAT 99
[2020-09-02 12:54] VITALS: BP 126/64; PULSE 69; RESP 16; TEMP 36.1; O2SAT 99
[2020-09-02 13:25] LABS: MANUAL DIFF FLAG NO
[2020-09-02 13:30] LABS: Basophils Percent Auto 0.8 % (0-2); Eosinophils Percent Auto 0.4 % (0-4); Hematocrit 31.9 % (37-47); Hemoglobin 10.6 g/dl (12.0-16.0); Imm Gran Abs Auto 0.02 X10*3/uL (0.00-0.03); Imm Gran Pct Auto 0.4 % (0.0-0.4); Lymphocytes Absolute Auto 1.7 X10*3/uL (1.2-4.9); Lymphocytes Percent Auto 32.4 % (20-40); Mean Corpuscular HGB Conc 33.2 g/dl (31.0-35.0); Mean Corpuscular Hemoglobin 31.7 pg (27.0-33.0); Mean Corpuscular Volume 95.5 fL (80-98); Mean Platelet Volume 9.1 fL (9.4-12.3); Monocytes Absolute Auto 0.4 X10*3/uL (0.1-1.2); Monocytes Percent Auto 8.3 % (2-11); Neutrophils Absolute Auto 3.1 X10*3/uL (2.0-8.3); Neutrophils Percent Auto 57.7 % (45-73); Platelet Count 275 X10*3/uL (160-400); Red Blood Count 3.34 X10*6/uL (4.20-5.50); Red Cell Distribution Width 13.3 % (11.0-16.0); White Blood Count 5.3 X10*3/uL (4.8-10.8)
[2020-09-02 14:08] LABS: Ferritin 40 ng/mL (10-250)
== END 2020-09-02 13:40 | disposition home or self-care (01) ==
PROVIDERS: PCP Family Medicine; Visit Provider Internal Medicine Gastroenterology
PROC: 0DJ08ZZ Inspection of Upper Intestinal Tract, Via Natural or Artificial Opening Endoscopic (ICD-10-PCS; CPT 43235; principal; 2020-09-02 13:00)
DX: K22.10 Ulcer of esophagus without bleeding (principal); K31.7 Polyp of stomach and duodenum; K44.9 Diaphragmatic hernia without obstruction or gangrene; K21.9 Gastro-esophageal reflux disease without esophagitis; I10 Essential (primary) hypertension; J45.909 Unspecified asthma, uncomplicated; D64.9 Anemia, unspecified; Z79.899 Other long term (current) drug therapy; Z88.0 Allergy status to penicillin
CPT/HCPCS: 43251; 43239; 36415; 82728; 85025; 88305; 88312; 88342

== ENCOUNTER 2020-09-08 12:30 | Emergency (ER) | payer MEDICARE, MEDICAID, SELFPAY ==
[2020-09-08 12:31] VITALS: BP 122/64; PULSE 84; RESP 18; TEMP 36.7; O2SAT 96; BMI 21.6
[2020-09-08 15:58] LABS: MANUAL DIFF FLAG NO
[2020-09-08 16:01] LABS: Basophils Absolute Auto 0.1 X10*3/uL (0.0-0.2); Basophils Percent Auto 0.8 % (0-2); Eosinophils Percent Auto 0.3 % (0-4); Hematocrit 33.7 % (37-47); Hemoglobin 11.3 g/dl (12.0-16.0); Imm Gran Abs Auto 0.02 X10*3/uL (0.00-0.03); Imm Gran Pct Auto 0.3 % (0.0-0.4); Lymphocytes Percent Auto 31.3 % (20-40); Mean Corpuscular HGB Conc 33.5 g/dl (31.0-35.0); Mean Corpuscular Hemoglobin 31.5 pg (27.0-33.0); Mean Corpuscular Volume 93.9 fL (80-98); Mean Platelet Volume 9.3 fL (9.4-12.3); Monocytes Absolute Auto 0.6 X10*3/uL (0.1-1.2); Monocytes Percent Auto 9.2 % (2-11); Neutrophils Absolute Auto 3.8 X10*3/uL (2.0-8.3); Neutrophils Percent Auto 58.1 % (45-73); Platelet Count 328 X10*3/uL (160-400); Red Blood Count 3.59 X10*6/uL (4.20-5.50); Red Cell Distribution Width 13.5 % (11.0-16.0); White Blood Count 6.5 X10*3/uL (4.8-10.8)
[2020-09-08 16:03] LABS: Appearance Urine CLEAR; Color Urine YELLOW; Glucose Urine UA NEG (NEG); Leukocyte Esterase Urine 2+ (NEG); Nitrite Urine NEG (NEG); UACC Culture Trigger YES; Urine Blood TRACE (NEG); Urine Ketones NEG (NEG); Urine Protein NEG (NEG-TRACE)
[2020-09-08 16:09] LABS: WBC Urine 30-49 /HPF (0-4)
[2020-09-08 16:10] LABS: Bacteria Urine TRACE /LPF; Squamous Epithelial Cell Urine 1+ /LPF
[2020-09-08 16:23] LABS: Alanine Aminotransferase 11 U/L (0-31); Albumin Level 4.1 g/dL (3.5-5.0); Alkaline Phosphatase 79 U/L (39-117); Anion Gap 12 (12-20); Aspartate Amino Transferase 14 U/L (5-31); Bilirubin Total 0.9 mg/dL (0.0-1.0); Blood Urea Nitrogen 15 mg/dL (9-16); Calcium 9.4 mg/dL (8.4-10.2); Carbon Dioxide 28 mmol/L (22-29); Chloride 105 mmol/L (96-108); Estimated Glomerular Filt Rate > 60; Glucose Random 83 mg/dL (60-115); Potassium 3.5 mmol/L (3.3-5.1); Sodium 141 mmol/L (135-145); Total Protein 6.7 g/dL (6.5-8.0)
== END 2020-09-08 17:03 | disposition left against medical advice (07) ==
LOC: HO.ED 17:02
PROVIDERS: Emergency Provider Emergency Medicine
DX: S09.90XA Unspecified injury of head, initial encounter (principal); W18.30XA Fall on same level, unspecified, initial encounter; I10 Essential (primary) hypertension; E78.00 Pure hypercholesterolemia, unspecified; Z91.81 History of falling; Y93.9 Activity, unspecified; Y92.9 Unspecified place or not applicable; Y99.9 Unspecified external cause status
CPT/HCPCS: 36415; 80053; 81001; 81003; 85025; 87086; 99283

== ENCOUNTER → 2020-10-10 11:19 | Outpatient (BNVA) | payer MEDICARE, MEDICAID, SELFPAY | PROVIDERS: Visit Provider Internal Medicine Gastroenterology | DX: K52.9 Noninfective gastroenteritis and colitis, unspecified (principal); R12 Heartburn; K44.9 Diaphragmatic hernia without obstruction or gangrene; K22.10 Ulcer of esophagus without bleeding; K31.7 Polyp of stomach and duodenum; K57.30 Diverticulosis of large intestine without perforation or abscess without bleeding; K59.00 Constipation, unspecified | CPT/HCPCS: 99212 ==

== ENCOUNTER → 2020-11-19 10:24 | Outpatient (BNVA) | payer MEDICARE, MEDICAID, SELFPAY | PROVIDERS: PCP Family Medicine; Visit Provider Nurse Practitioner Family | CPT/HCPCS: Q3014 ==

== ENCOUNTER 2020-11-27 14:53 | Outpatient (REF) | payer MEDICARE, MEDICAID, SELFPAY ==
[2020-11-27 16:28] LABS: Free T4 (Free Thyroxine) 1.04 ng/dL (0.71-1.85); Thyroid Stimulating Hormone 2.02 uIU/mL (0.32-4.0)
== END 2020-11-27 14:54 | disposition home or self-care (01) ==
LOC: HO.LAB 14:53
PROVIDERS: PCP Family Medicine; Visit Provider Family Medicine
DX: E03.9 Hypothyroidism, unspecified (principal)
CPT/HCPCS: 36415; 84439; 84443